=== PATIENT | male | born 1940 | race American Indian/Alaskan Native ===

== ENCOUNTER 2018-08-31 18:06 | Inpatient (IN) | payer MEDICARE ==
[2018-08-31] MEDS ORDERED: VANCOMYCIN/NS 1 GM/250 ML 1 GM/250 ML BAG IV ONE (18:51)
--- NOTE | 2018-08-31 18:55 | Emergency Department Report ---
ED General Adult HPI - General Chief complaint: Extremity Problem,Nontraumatic Stated complaint: EDEMA/ULCERS ON LEGS/SENT BY DOCTOR Time Seen by Provider: 08/31/18 18:40 Source: patient Mode of arrival: Wheelchair Limitations: No Limitations - History of Present Illness Initial comments: Patient is 78 years old male with history of congestive heart failure and chronic bilateral lower extremity lymphedema. Patient was sent from his primary care physician office after consulting with the vascular surgeon Dr. Thomson. Patient had varicose surgery a few months back by Dr. Thomson as an outpatient surgery. Patient presented to his primary care physician office today with significant bilateral lower extremity swelling with multiple area or for skin ulceration with greenish discharge. Patient was sent here for admission and IV antibiotics. Patient denied any fever or chills. No nausea or vomiting. Patient denied any shortness of breath or chest pain. Severity scale (0 -10): 10 - Related Data Home Medications Medication Instructions Recorded Confirmed Last Taken Furosemide [Lasix TAB] 40 mg PO QDAY 07/20/14 08/31/18 08/31/18 Irbesartan [Avapro] 150 mg PO QDAY 07/20/14 08/31/18 08/31/18 Potassium Chloride 10 meq PO QDAY 07/20/14 08/31/18 07/19/14 Pravastatin [Pravachol] 40 mg PO QHS 07/20/14 08/31/18 07/19/14 Timolol [Betimol] 1 drop OU BID 07/20/14 08/31/18 07/20/14 06:30 Warfarin Sodium [Coumadin] 4 mg PO QDAY 07/20/14 08/31/18 07/15/14 Carvedilol [Coreg] 12.5 mg PO BID 08/31/18 08/31/18 08/31/18 Latanoprost [Xalatan] 1 drop OU QPM 08/31/18 08/31/18 Unknown Allergies Allergy/AdvReac Type Severity Reaction Status Date / Time No Known Allergies Allergy Verified 07/20/14 06:59 ED Review of Systems ROS: Stated complaint: EDEMA/ULCERS ON LEGS/SENT BY DOCTOR Other details as noted in HPI Comment: All other systems reviewed and negative Constitutional: denies: chills, fever Respiratory: denies: cough, orthopnea, shortness of breath, SOB with exertion, SOB at rest, wheezing Cardiovascular: denies: chest pain, palpitations ED Past Medical Hx - Past Medical History Hx Hypertension: Yes () Hx Heart Attack/AMI: No Hx Congestive Heart Failure: Yes Hx HIV: No - Surgical History Past Surgical History?: No - Social History Smoking Status: Never Smoker Substance Use Type: None - Medications Home Medications: Home Medications Medication Instructions Recorded Confirmed Last Taken Type Furosemide [Lasix TAB] 40 mg PO QDAY 07/20/14 08/31/18 08/31/18 History Irbesartan [Avapro] 150 mg PO QDAY 07/20/14 08/31/18 08/31/18 History Potassium Chloride 10 meq PO QDAY 07/20/14 08/31/18 07/19/14 History Pravastatin [Pravachol] 40 mg PO QHS 07/20/14 08/31/18 07/19/14 History Timolol [Betimol] 1 drop OU BID 07/20/14 08/31/18 07/20/14 06:30 History Warfarin Sodium [Coumadin] 4 mg PO QDAY 07/20/14 08/31/18 07/15/14 History Carvedilol [Coreg] 12.5 mg PO BID 08/31/18 08/31/18 08/31/18 History Latanoprost [Xalatan] 1 drop OU QPM 08/31/18 08/31/18 Unknown History ED Physical Exam - General Limitations: No Limitations General appearance: alert, in no apparent distress - Head Head exam: Present: atraumatic, normocephalic, normal inspection - Eye Eye exam: Present: normal appearance - ENT ENT exam: Present: normal exam, normal orophraynx, mucous membranes moist - Neck Neck exam: Present: normal inspection, full ROM. Absent: tenderness, meningismus, lymphadenopathy, thyromegaly - Respiratory Respiratory exam: Present: normal lung sounds bilaterally. Absent: respiratory distress, wheezes, rales, rhonchi, chest wall tenderness, accessory muscle use, decreased breath sounds, prolonged expiratory - Cardiovascular Cardiovascular Exam: Present: regular rate, normal rhythm, normal heart sounds - GI/Abdominal GI/Abdominal exam: Present: soft, normal bowel sounds. Absent: distended, tenderness, guarding, rebound, rigid - Extremities Exam Extremities exam: Present: pedal edema, other (significant bilateral lower extremity lymphedema with multiple ulceration with greenish discharge.) - Back Exam Back exam: Present: normal inspection - Neurological Exam Neurological exam: Present: alert, oriented X3, CN II-XII intact - Psychiatric Psychiatric exam: Present: normal mood - Skin Skin exam: Present: erythema ED Course Vital Signs 08/31/18 08/31/18 08/31/18 18:17 20:00 20:15 Temperature 98.8 F 98.4 F Pulse Rate 76 76 Respiratory 18 16 Rate Blood Pressure 140/60 127/70 O2 Sat by Pulse 98 98 Oximetry - Consultations Consultation #1: 08/31/18 20:24 I discussed the patient is Dr. Thomsno, he advised to admit the patient to the hospital and he will follow up with the patient in the morning. 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 Patient was sent from his primary care physician office after consulting with the vascular surgeon Dr. Thomson. Patient had varicose surgery a few months back by Dr. Thomson as an outpatient surgery. Patient presented to his primary care physician office today with significant bilateral lower extremity swelling with multiple area or for skin ulceration with greenish discharge. Patient was sent here for admission and IV antibiotics. Patient denied any fever or chills. No nausea or vomiting. Patient denied any shortness of breath or chest pain. Patient found to have significant bilateral lymphedema with cellulitis. I discussed the patient is Dr. Thomson, he advised to admit the patient to the hospital and he will see the patient in the morning. Patient also found to have, D and toxicity with INR of 14. No active bleeding. Vitamin K is given. I discussed the patient is Dr. Abby Martinez, she agreed to admit to medical service. Critical Care Time: Yes Critical care time in (mins) excluding proc time.: 30 Critical care attestation.: If time is entered above; I have spent that time in minutes in the direct care of this critically ill patient, excluding procedure time. ED Disposition Clinical Impression: Lymphedema of both lower extremities, Bilateral lower leg cellulitis, Coumadin toxicity Disposition: OP ADMIT IP TO THIS HOSP Is pt being admited?: Yes Condition: Stable Referrals: [facility], MD [Referring] - 3-5 Days
[2018-08-31 19:57] LABS: Alanine Aminotransferase 13 units/L (7-56); Albumin 3.3 g/dL (3.9-5); BUN/Creatinine Ratio 28; Blood Urea Nitrogen 22 mg/dL (9-20); Hemolysis Index 89
[2018-08-31 20:02] LABS: Basophils # (Auto) 0.1 K/mm3 (0.0-0.1); Basophils % (Auto) 0.8 % (0.0-1.8); Eosinophils # (Auto) 0.1 K/mm3 (0.0-0.4); Eosinophils % (Auto) 1.3 % (0.0-4.3); Hematocrit 35.5 % (35.5-45.6); Hemoglobin 11.1 gm/dl (11.8-15.2); Lymphocytes # (Auto) 0.7 K/mm3 (1.2-5.4); Lymphocytes % (Auto) 9.8 % (13.4-35.0); Mean Corpuscular HGB Conc 31 % (32-34); Mean Corpuscular Volume 87 fl (84-94); Monocytes # (Auto) 0.8 K/mm3 (0.0-0.8); Monocytes % (Auto) 11.5 % (0.0-7.3); Platelet Count 153 K/mm3 (140-440); Red Blood Count 4.09 M/mm3 (3.65-5.03); Red Cell Distribution Width 19.2 % (13.2-15.2)
[2018-08-31 20:09] LABS: INR 14.11 (0.87-1.13); Partial Thromboplastin Time 226.8 Sec. (24.2-36.6)
[2018-08-31] MEDS: VANCOMYCIN 2,000 MG in NACL 0.9% 500 ML 500 ML IV SCH (20:51)
[2018-08-31] MEDS ORDERED: VITAMIN K (ADULT ONLY) SUB-Q ONE (21:27)
--- NOTE | 2018-08-31 23:22 | History and Physical Report ---
History of Present Illness Date of examination: 08/31/18 History of present illness: 78-year-old male with a history of hypertension, CHF, lymphedema stated that he had a procedure on his leg on July 08 for circulation, after that he developed blisters on his legs. He has been going to wound care, they have been wrapping his legs since. Patient state he had greenish discharge from wound. Vascular wanted the patient to be admitted, they will attempt another procedure on his leg Review of systems Constitutional: no weight loss, chills, fever Ears, eyes, nose, mouth and throat: no nasal congestion, no nasal discharge, no sinus pressure, no vision change, no red eye. Neck: No neck pain or rigidity. Cardiovascular: no palpitations, chest pain Respiratory: no cough, shortness of breath Gastrointestinal: no hematochezia, abdominal pain Genitourinary : no frequency , no hematuria Musculoskeletal: no joint swelling or muscle ache Integumentary: no rash, no pruritis Neurological: no parathesias, no focal weakness Endocrine: no cold or heat intolerance, no polyuria or polydipsia Hematologic/Lymphatic: no easy bruising, no easy bleeding, no gland swelling Allergic/Immunologic: no urticaria, no angioedema. PAST MEDICAL HISTORY:hypertension, CHF, lymphedema PAST SURGICAL HISTORY: SOCIAL HISTORY: Denies alcohol, drugs, tobacco FAMILY HISTORY: Hypertension Medications and Allergies Allergies Allergy/AdvReac Type Severity Reaction Status Date / Time No Known Allergies Allergy Verified 07/20/14 06:59 Home Medications Medication Instructions Recorded Confirmed Last Taken Type Furosemide [Lasix TAB] 40 mg PO QDAY 07/20/14 08/31/18 08/31/18 History Irbesartan [Avapro] 150 mg PO QDAY 07/20/14 08/31/18 08/31/18 History Potassium Chloride 10 meq PO QDAY 07/20/14 08/31/18 07/19/14 History Pravastatin [Pravachol] 40 mg PO QHS 07/20/14 08/31/18 07/19/14 History Timolol [Betimol] 1 drop OU BID 07/20/14 08/31/18 07/20/14 06:30 History Warfarin Sodium [Coumadin] 4 mg PO QDAY 07/20/14 08/31/18 07/15/14 History Carvedilol [Coreg] 12.5 mg PO BID 08/31/18 08/31/18 08/31/18 History Latanoprost [Xalatan] 1 drop OU QPM 08/31/18 08/31/18 Unknown History Enoxaparin [Lovenox] 100 mg SUB-Q Q12HR #14 syringe 09/08/18 Unknown Rx oxyCODONE /ACETAMINOPHEN [Percocet 1 tab PO Q4H PRN #20 tablet 09/08/18 Unknown Rx 5/325 mg] Active Meds: Active Medications Vancomycin HCl 2,000 mg/ (Sodium Chloride) 540 mls @ 250 mls/hr IV Q12H [facility] Last Admin: 08/31/18 20:51 Dose: 250 mls/hr Documented by: Exam - Physical Exam Narrative exam: General Apperance: The patient lying in bed, breathing comfortable HEENT: Normocephalic, atraumatic. Pupils equally round and reactive to light, EOMI, no sclericterus or JVD or thyromegaly or nodule. , no carotid bruit, mucous membranes moist, no exudate or erythema Heart: S1-S2, regular is rhythm Lungs: Clear to auscultation bilaterally, breathing comfortable Abdomen: Positive bowel sounds, soft, nontender, nondistended, no organomegaly Extremities: Lympedema, denuded blisters without erythema, no cyanosis clubbing Skin: no rash, nodule, warm and dry Neuro: cranial nerves 2-12 intact, speech is fluent, motor/sensory intact - Constitutional Vitals: Temp Pulse Resp BP Pulse Ox 98.4 F 65 18 108/56 97 08/31/18 20:15 08/31/18 22:00 08/31/18 22:00 08/31/18 22:00 08/31/18 22:00 Results - Labs CBC & Chem 7: 09/02/18 15:46 09/08/18 16:11 Labs: Abnormal lab results 08/31/18 08/31/18 08/31/18 Range/Units 19:33 19:33 19:42 Hgb 11.1 L (11.8-15.2) gm/dl MCH 27 L (28-32) pg MCHC 31 L (32-34) % RDW 19.2 H (13.2-15.2) % Lymph % (Auto) 9.8 L (13.4-35.0) % [place] % (Auto) 11.5 H (0.0-7.3) % Lymph # 0.7 L (1.2-5.4) K/mm3 Seg Neutrophils % 76.6 H (40.0-70.0) % PT 114.7 H (12.2-14.9) Sec. INR 14.11 H* (0.87-1.13) APTT 226.8 H* (24.2-36.6) Sec. Sodium 146 H (137-145) mmol/L Chloride 112.7 H (98-107) mmol/L BUN 22 H (9-20) mg/dL Glucose 131 H (75-100) mg/dL Albumin 3.3 L (3.9-5) g/dL Assessment and Plan Assessment Cellulitis Llymphedema CHF, stable Hypertension Plan Admit to medicine Continue vancomycin Nothing by mouth call for procedure tomorrow Continue appropriate outpatient medications DVT prophylaxis, repeat PT/INR
[2018-09-01 00:01] LABS: INR 4.87 (0.87-1.13)
[2018-09-01 01:08] LABS: Partial Thromboplastin Time 85.6 Sec. (24.2-36.6)
[2018-09-01] MEDS: PERCOCET 5/325 PO PRN ×2 (01:48→17:55)
[2018-09-01] MEDS ORDERED: SODIUM CHLORIDE FLUSH SYRINGE 10 ML IV PRN (05:01)
[2018-09-01] MEDS ORDERED: ZOFRAN IV PRN (05:01)
[2018-09-01 07:46] LABS: Hematocrit 30.6 % (35.5-45.6); Hemoglobin 9.6 gm/dl (11.8-15.2); Mean Corpuscular HGB Conc 31 % (32-34); Mean Corpuscular Volume 86 fl (84-94); Platelet Count 116 K/mm3 (140-440); Red Blood Count 3.58 M/mm3 (3.65-5.03); Red Cell Distribution Width 18.7 % (13.2-15.2)
[2018-09-01 07:48] LABS: BUN/Creatinine Ratio 25; Blood Urea Nitrogen 20 mg/dL (9-20); Calcium 9.6 mg/dL (8.4-10.2)
[2018-09-01 07:49] LABS: Hemolysis Index 0
--- NOTE | 2018-09-01 08:42 | Progress Note ---
Assessment and Plan Assessment and plan: 78-year-old male with a history of hypertension, CHF, lymphedema, the patient had had recent varicose surgery a few months ago with Dr. Balnton as an outpatient. He presents his outpatient PCP with complaints of significant bilateral actually swelling and multiple areas of skin ulceration. His PCP then sent into the hospital. PAST MEDICAL HISTORY:hypertension, CHF, lymphedema Diagnoses Cellulitis ruled out Llymphedema Venous stasis ulcers CHF, stable Hypertension -paroxysmal atrial fibrillation with hypercoagulable states Plan -Local wound care, with compression for lymphedema, will need outpatient referral to lymphedema clinic -At this point he is awaiting vascular surgery consult -Patient is fully anticoagulated for PAF History Interval history: The patient continues to complain of swelling in both legs, ulcers on both legs. No fever, no chest pain, no shortness of breath, no nausea, no vomiting Hospitalist Physical - Physical exam Narrative exam: General.: Appears well, no distress, nontoxic HEENT: Moist mucous membranes, extraocular muscles intact, no lymphadenopathy Neck: supple Cardiac: S1-S2 heard Lungs: clear to auscultation bilaterally Abdomen: soft , nontender, nondistended, bowel sounds positive Extremities: Lymphedema of bilateral lower extremities and multiple ulcerations Skin: no rash or lesions Neurologic: no gross focal deficits Psych: calm, and cooperative - Constitutional Vitals: Temp Pulse Resp BP Pulse Ox 97.8 F 55 L 20 102/46 96 09/01/18 07:19 09/01/18 07:00 09/01/18 07:19 09/01/18 07:19 09/01/18 07:00 Results - Labs CBC & Chem 7: 09/02/18 15:46 09/06/18 10:57 Labs: Laboratory Last Values WBC 4.9 K/mm3 (4.5-11.0) 09/01/18 06:40 RBC 3.58 M/mm3 (3.65-5.03) L 09/01/18 06:40 Hgb 9.6 gm/dl (11.8-15.2) L 09/01/18 06:40 Hct 30.6 % (35.5-45.6) L 09/01/18 06:40 MCV 86 fl (84-94) 09/01/18 06:40 MCH 27 pg (28-32) L 09/01/18 06:40 MCHC 31 % (32-34) L 09/01/18 06:40 RDW 18.7 % (13.2-15.2) H 09/01/18 06:40 Plt Count 116 K/mm3 (140-440) L 09/01/18 06:40 Lymph % (Auto) 9.8 % (13.4-35.0) L 08/31/18 19:42 [place] % (Auto) School Psychology Professor 09/01/18 06:40 Eos % (Auto) 1.3 % (0.0-4.3) 08/31/18 19:42 Baso % (Auto) 0.8 % (0.0-1.8) 08/31/18 19:42 Lymph # 0.7 K/mm3 (1.2-5.4) L 08/31/18 19:42 [place] # 0.8 K/mm3 (0.0-0.8) 08/31/18 19:42 Eos # 0.1 K/mm3 (0.0-0.4) 08/31/18 19:42 Baso # 0.1 K/mm3 (0.0-0.1) 08/31/18 19:42 Seg Neutrophils % 76.6 % (40.0-70.0) H 08/31/18 19:42 Seg Neutrophils # 5.5 K/mm3 (1.8-7.7) 08/31/18 19:42 PT 49.0 Sec. (12.2-14.9) H 08/31/18 23:27 INR 4.87 (0.87-1.13) H 08/31/18 23:27 APTT 85.6 Sec. (24.2-36.6) H* 08/31/18 23:27 Sodium 149 mmol/L (137-145) H 09/01/18 06:40 Potassium 3.5 mmol/L (3.6-5.0) L D 09/01/18 06:40 Chloride 115.3 mmol/L (98-107) H 09/01/18 06:40 Carbon Dioxide 25 mmol/L (22-30) 09/01/18 06:40 Anion Gap 12 mmol/L 09/01/18 06:40 BUN 20 mg/dL (9-20) 09/01/18 06:40 Creatinine 0.8 mg/dL (0.8-1.5) 09/01/18 06:40 Estimated GFR > 60 ml/min 09/01/18 06:40 BUN/Creatinine Ratio 25 % 09/01/18 06:40 Glucose 78 mg/dL (75-100) 09/01/18 06:40 Calcium 9.6 mg/dL (8.4-10.2) 09/01/18 06:40 Total Bilirubin 0.70 mg/dL (0.1-1.2) 08/31/18 19:33 AST 23 units/L (5-40) 08/31/18 19:33 ALT 13 units/L (7-56) 08/31/18 19:33 Alkaline Phosphatase 116 units/L (35-129) 08/31/18 19:33 Total Protein 6.4 g/dL (6.3-8.2) 08/31/18 19:33 Albumin 3.3 g/dL (3.9-5) L 08/31/18 19:33 Albumin/Globulin Ratio 1.1 % 08/31/18 19:33
[2018-09-01 08:51] LABS: Total Cells Counted 100
[2018-09-01 08:55] LABS: Anisocytosis 1+; Ovalocytes Few; Platelet Estimate Consistent w Auto; Poikilocytosis 1+; Schistocytes Rare
[2018-09-01] MEDS: VANCOMYCIN 2,000 MG in NACL 0.9% 500 ML 500 ML IV SCH (09:38)
[2018-09-01] MEDS ORDERED: NON-FORMULARY (Irbesartan [Avapro] 150 MG) PO SCH (10:00)
[2018-09-01] MEDS: TIMOPTIC OU SCH (10:36)
[2018-09-01] MEDS: SODIUM CHLORIDE FLUSH SYRINGE 10 ML IV SCH ×2 (10:41→22:15)
[2018-09-01] MEDS: COREG PO SCH ×2 (10:59→22:13)
[2018-09-01] MEDS: COZAAR PO SCH (12:45)
[2018-09-01] MEDS: LASIX PO SCH (12:47)
[2018-09-01] MEDS: LATANOPROST 0.005% OU SCH (17:56)
--- NOTE | 2018-09-01 17:56 | Consultation ---
History of Present Illness - Reason for Consult Consult date: 09/01/18 lower extremity edema and wounds Requesting physician: CUATE TORRES - History of Present Illness He is 78 year black male with history of congestive heart failure, hypertension and chronic bilateral lower extremity lymphedema. He was evaluated at his primary care physician's office and was noted to have severe lower extremity edema to bilateral lower extremities with ulcerations. The ulcerations were draining purulent discharge. His primary physician, Dr. Tsai sent him to the ER for further evaluation. He was admitted for cellulitis, warfarin toxicity, and uncontrolled lymphedema. A vascular surgery consult was requested to evaluate. Past History Past Medical History: hypertension, other (CHF, lymphedema) Past Surgical History: Other (GSV ablation) Social history: denies: smoking, alcohol abuse Family history: hypertension Medications and Allergies Allergies Allergy/AdvReac Type Severity Reaction Status Date / Time No Known Allergies Allergy Verified 07/20/14 06:59 Home Medications Medication Instructions Recorded Confirmed Last Taken Type Furosemide [Lasix TAB] 40 mg PO QDAY 07/20/14 08/31/18 08/31/18 History Irbesartan [Avapro] 150 mg PO QDAY 07/20/14 08/31/18 08/31/18 History Potassium Chloride 10 meq PO QDAY 07/20/14 08/31/18 07/19/14 History Pravastatin [Pravachol] 40 mg PO QHS 07/20/14 08/31/18 07/19/14 History Timolol [Betimol] 1 drop OU BID 07/20/14 08/31/18 07/20/14 06:30 History Warfarin Sodium [Coumadin] 4 mg PO QDAY 07/20/14 08/31/18 07/15/14 History Carvedilol [Coreg] 12.5 mg PO BID 08/31/18 08/31/18 08/31/18 History Latanoprost [Xalatan] 1 drop OU QPM 08/31/18 08/31/18 Unknown History Active Meds: Active Medications Acetaminophen (Tylenol) 650 mg PO Q4H PRN PRN Reason: Pain MILD(1-3)/Fever >100.5/ALEXANDER Carvedilol (Coreg) 12.5 mg PO BID [facility] Last Admin: 09/01/18 10:59 Dose: Not Given Documented by: Furosemide (Lasix) 40 mg PO QDAY [facility] Last Admin: 09/01/18 12:47 Dose: Not Given Documented by: Potassium Chloride 10 meq/ (Dextrose) 1,005 mls @ 100 mls/hr IV DIRECT [facility] Vancomycin HCl 2,000 mg/ (Sodium Chloride) 540 mls @ 250 mls/hr IV Q24HR [facility] Latanoprost (Latanoprost 0.005%) 1 drops OU QPM [facility] Losartan Potassium (Cozaar) 50 mg PO QDAY [facility] Last Admin: 09/01/18 12:45 Dose: Not Given Documented by: Ondansetron HCl (Zofran) 4 mg IV Q8H PRN PRN Reason: Nausea And Vomiting Oxycodone/Acetaminophen (Percocet 5/325) 1 tab PO Q4H PRN PRN Reason: Pain, Moderate (4-6) Last Admin: 09/01/18 01:48 Dose: 1 tab Documented by: Pravastatin Sodium (Pravachol) 40 mg PO QHS [facility] Sodium Chloride (Sodium Chloride Flush Syringe 10 Ml) 10 ml IV BID [facility] Last Admin: 09/01/18 10:41 Dose: 10 ml Documented by: Sodium Chloride (Sodium Chloride Flush Syringe 10 Ml) 10 ml IV PRN PRN PRN Reason: LINE FLUSH Timolol Maleate (Timoptic) 1 drops OU QDAY [facility] Last Admin: 09/01/18 10:36 Dose: 1 drops Documented by: Review of Systems All systems: negative (leg swelling, lower extremity ulcerations) Exam - Constitutional Vitals: Temp Pulse Resp BP Pulse Ox 98.0 F 69 20 113/46 97 09/01/18 15:17 09/01/18 12:00 09/01/18 15:17 09/01/18 15:17 09/01/18 15:39 General appearance: Present: well-nourished, other (Awake alert) - EENT Eyes: Present: EOM intact ENT: hearing intact - Neck Neck: Present: supple, normal ROM - Respiratory Respiratory effort: normal, other (nonlabored at rest) - Extremities Extremities: abnormal (3+ edema bilateral lower extremities, Multiple superficial ulcerations present bilateral lower extremities, serous drainage present, ) Peripheral Pulses: abnormal (Bilateral DP/PT pulses nonpalpable, lower extremities warm and appear adequately perfused) - Integumentary Integumentary: Present: warm, dry (Multiple superfical ulcerations bilateral lower extremities, wound beds pink, serous drainage, lipodermatosclerosis early lichenfication present lower extremities) - Psychiatric Psychiatric: intact judgment & insight, cooperative - Neurologic Neurologic: CNII-XII intact, no focal deficits, moves all extremities Results - Labs CBC & Chem 7: 09/01/18 06:40 09/01/18 06:40 Labs: Abnormal lab results 08/31/18 08/31/18 08/31/18 Range/Units 19:33 19:33 19:42 RBC (3.65-5.03) M/mm3 Hgb 11.1 L (11.8-15.2) gm/dl Hct (35.5-45.6) % MCH 27 L (28-32) pg MCHC 31 L (32-34) % RDW 19.2 H (13.2-15.2) % Plt Count (140-440) K/mm3 Lymph % (Auto) 9.8 L (13.4-35.0) % [place] % (Auto) 11.5 H (0.0-7.3) % Lymph # 0.7 L (1.2-5.4) K/mm3 Seg Neutrophils % 76.6 H (40.0-70.0) % Seg Neuts % (Manual) (40.0-70.0) % Lymphocytes % (Manual) (13.4-35.0) % Monocytes % (Manual) (0.0-7.3) % Lymphocytes # (Manual) (1.2-5.4) K/mm3 PT 114.7 H (12.2-14.9) Sec. INR 14.11 H* (0.87-1.13) APTT 226.8 H* (24.2-36.6) Sec. Sodium 146 H (137-145) mmol/L Potassium (3.6-5.0) mmol/L Chloride 112.7 H (98-107) mmol/L BUN 22 H (9-20) mg/dL Glucose 131 H (75-100) mg/dL Albumin 3.3 L (3.9-5) g/dL 08/31/18 09/01/18 09/01/18 Range/Units 23:27 06:40 06:40 RBC 3.58 L (3.65-5.03) M/mm3 Hgb 9.6 L (11.8-15.2) gm/dl Hct 30.6 L (35.5-45.6) % MCH 27 L (28-32) pg MCHC 31 L (32-34) % RDW 18.7 H (13.2-15.2) % Plt Count 116 L (140-440) K/mm3 Lymph % (Auto) (13.4-35.0) % [place] % (Auto) (0.0-7.3) % Lymph # (1.2-5.4) K/mm3 Seg Neutrophils % (40.0-70.0) % Seg Neuts % (Manual) 80.0 H (40.0-70.0) % Lymphocytes % (Manual) 8.0 L (13.4-35.0) % Monocytes % (Manual) 10.0 H (0.0-7.3) % Lymphocytes # (Manual) 0.4 L (1.2-5.4) K/mm3 PT 49.0 H (12.2-14.9) Sec. INR 4.87 H (0.87-1.13) APTT 85.6 H* (24.2-36.6) Sec. Sodium 149 H (137-145) mmol/L Potassium 3.5 L D (3.6-5.0) mmol/L Chloride 115.3 H (98-107) mmol/L BUN (9-20) mg/dL Glucose (75-100) mg/dL Albumin (3.9-5) g/dL Assessment and Plan Lymphedema He is known to our practice for previous evaluation and treatment of venous insufficiency and lymphedema. He had previous venous ablation in the past with little change in his lower extremity symptoms, no further venous procedures completed as lymphedema considered to be his primary source. He reports this exacerbation of leg swelling started in May 2018. He has lymphedema pumps and has not been using them. He also is not elevating his legs. He has not been wearing compression hose due to his leg wounds. On exam his lower extremities are warm and appear adequately perfused but his pulses are non-palpable likely due to edema. Will obtain lower arterial studies. No vascular surgical intervention indicated at this time. Recommend aggressive leg elevation, manual lymphatic drainage then compression hose and continued use of his compression pumps consistently. Consult wound care, discharge planning for outpatient wound care follow up. Cellulitis lower extremities continue with antibiotics Warfarin Toxicity Unsure of diagnosis for anticoagulation therapy. Currently Warfarin toxic. Management as per hospitalist.
[2018-09-01] MEDS: PRAVACHOL PO SCH (22:14)
[2018-09-02] MEDS: KCL 10 MEQ in D5W 1,000 ML IV SCH (06:00)
[2018-09-02] MEDS: TYLENOL PO PRN (09:01)
[2018-09-02] MEDS: TIMOPTIC OU SCH (09:01)
[2018-09-02] MEDS: SODIUM CHLORIDE FLUSH SYRINGE 10 ML IV SCH (09:04)
--- NOTE | 2018-09-02 14:19 | Progress Note ---
Assessment and Plan Assessment and plan: 78-year-old male with a history of hypertension, CHF, lymphedema, the patient had had recent varicose surgery a few months ago with Dr. Blanton as an outpatient. He presents his outpatient PCP with complaints of significant bilateral actually swelling and multiple areas of skin ulceration. His PCP then sent into the hospital. PAST MEDICAL HISTORY:hypertension, CHF, lymphedema Diagnoses Cellulitis ruled out Llymphedema Venous stasis ulcers CHF, stable Hypertension -paroxysmal atrial fibrillation with hypercoagulable states Hypokalemia Plan -Local wound care, with compression for lymphedema, will need outpatient referral to lymphedema clinic -Vascular surgery consult appreciated, he is planned for inpatient's procedure for revascularization of lower extremities -Patient is fully anticoagulated for PAF Potassium was repleted History Interval history: The patient continues to complain of swelling in both legs, ulcers on both legs. No fever, no chest pain, no shortness of breath, no nausea, no vomiting Hospitalist Physical - Physical exam Narrative exam: General.: Appears well, no distress, nontoxic HEENT: Moist mucous membranes, extraocular muscles intact, no lymphadenopathy Neck: supple Cardiac: S1-S2 heard Lungs: clear to auscultation bilaterally Abdomen: soft , nontender, nondistended, bowel sounds positive Extremities: Lymphedema of bilateral lower extremities and multiple ulcerations Skin: no rash or lesions Neurologic: no gross focal deficits Psych: calm, and cooperative - Constitutional Vitals: Temp Pulse Resp BP Pulse Ox 98.3 F 66 19 130/60 96 09/02/18 12:26 09/02/18 12:26 09/02/18 12:26 09/02/18 12:26 09/02/18 12:26 General appearance: Present: well-nourished, other (Awake alert) Results - Labs CBC & Chem 7: 09/02/18 15:46 09/06/18 10:57 Labs: Laboratory Last Values WBC 4.9 K/mm3 (4.5-11.0) 09/01/18 06:40 RBC 3.58 M/mm3 (3.65-5.03) L 09/01/18 06:40 Hgb 9.6 gm/dl (11.8-15.2) L 09/01/18 06:40 Hct 30.6 % (35.5-45.6) L 09/01/18 06:40 MCV 86 fl (84-94) 09/01/18 06:40 MCH 27 pg (28-32) L 09/01/18 06:40 MCHC 31 % (32-34) L 09/01/18 06:40 RDW 18.7 % (13.2-15.2) H 09/01/18 06:40 Plt Count 116 K/mm3 (140-440) L 09/01/18 06:40 Lymph % (Auto) 9.8 % (13.4-35.0) L 08/31/18 19:42 [place] % (Auto) Tank Calibrator 09/01/18 06:40 Eos % (Auto) 1.3 % (0.0-4.3) 08/31/18 19:42 Baso % (Auto) 0.8 % (0.0-1.8) 08/31/18 19:42 Lymph # 0.7 K/mm3 (1.2-5.4) L 08/31/18 19:42 [place] # 0.8 K/mm3 (0.0-0.8) 08/31/18 19:42 Eos # 0.1 K/mm3 (0.0-0.4) 08/31/18 19:42 Baso # 0.1 K/mm3 (0.0-0.1) 08/31/18 19:42 Add Manual Diff Complete 09/01/18 06:40 Total Counted 100 09/01/18 06:40 Seg Neutrophils % 76.6 % (40.0-70.0) H 08/31/18 19:42 Seg Neuts % (Manual) 80.0 % (40.0-70.0) H 09/01/18 06:40 Band Neutrophils % 0 % 09/01/18 06:40 Lymphocytes % (Manual) 8.0 % (13.4-35.0) L 09/01/18 06:40 Reactive Lymphs % (Man) 0 % 09/01/18 06:40 Monocytes % (Manual) 10.0 % (0.0-7.3) H 09/01/18 06:40 Eosinophils % (Manual) 1.0 % (0.0-4.3) 09/01/18 06:40 Basophils % (Manual) 1.0 % (0.0-1.8) 09/01/18 06:40 Metamyelocytes % 0 % 09/01/18 06:40 Myelocytes % 0 % 09/01/18 06:40 Promyelocytes % 0 % 09/01/18 06:40 Blast Cells % 0 % 09/01/18 06:40 Nucleated RBC % Not Reportable 09/01/18 06:40 Seg Neutrophils # 5.5 K/mm3 (1.8-7.7) 08/31/18 19:42 Seg Neutrophils # Man 3.9 K/mm3 (1.8-7.7) 09/01/18 06:40 Band Neutrophils # 0.0 K/mm3 09/01/18 06:40 Lymphocytes # (Manual) 0.4 K/mm3 (1.2-5.4) L 09/01/18 06:40 Abs React Lymphs (Man) 0.0 K/mm3 09/01/18 06:40 Monocytes # (Manual) 0.5 K/mm3 (0.0-0.8) 09/01/18 06:40 Eosinophils # (Manual) 0.0 K/mm3 (0.0-0.4) 09/01/18 06:40 Basophils # (Manual) 0.0 K/mm3 (0.0-0.1) 09/01/18 06:40 Metamyelocytes # 0.0 K/mm3 09/01/18 06:40 Myelocytes # 0.0 K/mm3 09/01/18 06:40 Promyelocytes # 0.0 K/mm3 09/01/18 06:40 Blast Cells # 0.0 K/mm3 09/01/18 06:40 WBC Morphology Not Reportable 09/01/18 06:40 Hypersegmented Neuts Not Reportable 09/01/18 06:40 Hyposegmented Neuts Not Reportable 09/01/18 06:40 Hypogranular Neuts Not Reportable 09/01/18 06:40 Smudge Cells Not Reportable 09/01/18 06:40 Toxic Granulation Not Reportable 09/01/18 06:40 Toxic Vacuolation Not Reportable 09/01/18 06:40 Dohle Bodies Not Reportable 09/01/18 06:40 Pelger-Huet Anomaly Not Reportable 09/01/18 06:40 Keith Rods Not Reportable 09/01/18 06:40 Platelet Estimate Consistent w auto 09/01/18 06:40 Clumped Platelets Not Reportable 09/01/18 06:40 Plt Clumps, EDTA Not Reportable 09/01/18 06:40 Large Platelets Not Reportable 09/01/18 06:40 Giant Platelets Not Reportable 09/01/18 06:40 Platelet Satelliting Not Reportable 09/01/18 06:40 Plt Morphology Comment Not Reportable 09/01/18 06:40 RBC Morphology Not Reportable 09/01/18 06:40 Dimorphic RBCs Not Reportable 09/01/18 06:40 Polychromasia Not Reportable 09/01/18 06:40 Hypochromasia Not Reportable 09/01/18 06:40 Poikilocytosis 1+ 09/01/18 06:40 Anisocytosis 1+ 09/01/18 06:40 Microcytosis Not Reportable 09/01/18 06:40 Macrocytosis Not Reportable 09/01/18 06:40 Spherocytes Not Reportable 09/01/18 06:40 Pappenheimer Bodies Not Reportable 09/01/18 06:40 Sickle Cells Not Reportable 09/01/18 06:40 Target Cells Not Reportable 09/01/18 06:40 Tear Drop Cells Not Reportable 09/01/18 06:40 Ovalocytes Few 09/01/18 06:40 Helmet Cells Not Reportable 09/01/18 06:40 [place] Bodies Not Reportable 09/01/18 06:40 [place] Rings Not Reportable 09/01/18 06:40 [place] Cells Not Reportable 09/01/18 06:40 Bite Cells Not Reportable 09/01/18 06:40 Crenated Cell Not Reportable 09/01/18 06:40 Elliptocytes Not Reportable 09/01/18 06:40 Acanthocytes (Spur) Not Reportable 09/01/18 06:40 Rouleaux Not Reportable 09/01/18 06:40 Hemoglobin C Crystals Not Reportable 09/01/18 06:40 Schistocytes Rare 09/01/18 06:40 Malaria parasites Not Reportable 09/01/18 06:40 Preet Bodies Not Reportable 09/01/18 06:40 Hem Pathologist Commnt No 09/01/18 06:40 PT 49.0 Sec. (12.2-14.9) H 08/31/18 23:27 INR 4.87 (0.87-1.13) H 08/31/18 23:27 APTT 85.6 Sec. (24.2-36.6) H* 08/31/18 23:27 Sodium 149 mmol/L (137-145) H 09/01/18 06:40 Potassium 3.5 mmol/L (3.6-5.0) L D 09/01/18 06:40 Chloride 115.3 mmol/L (98-107) H 09/01/18 06:40 Carbon Dioxide 25 mmol/L (22-30) 09/01/18 06:40 Anion Gap 12 mmol/L 09/01/18 06:40 BUN 20 mg/dL (9-20) 09/01/18 06:40 Creatinine 0.8 mg/dL (0.8-1.5) 09/01/18 06:40 Estimated GFR > 60 ml/min 09/01/18 06:40 BUN/Creatinine Ratio 25 % 09/01/18 06:40 Glucose 78 mg/dL (75-100) 09/01/18 06:40 Calcium 9.6 mg/dL (8.4-10.2) 09/01/18 06:40 Total Bilirubin 0.70 mg/dL (0.1-1.2) 08/31/18 19:33 AST 23 units/L (5-40) 08/31/18 19:33 ALT 13 units/L (7-56) 08/31/18 19:33 Alkaline Phosphatase 116 units/L (35-129) 08/31/18 19:33 Total Protein 6.4 g/dL (6.3-8.2) 08/31/18 19:33 Albumin 3.3 g/dL (3.9-5) L 08/31/18 19:33 Albumin/Globulin Ratio 1.1 % 08/31/18 19:33
[2018-09-02 16:08] LABS: Basophils % (Auto) 0.8 % (0.0-1.8); Eosinophils # (Auto) 0.1 K/mm3 (0.0-0.4); Eosinophils % (Auto) 1.1 % (0.0-4.3); Hemoglobin 9.9 gm/dl (11.8-15.2); Lymphocytes # (Auto) 0.9 K/mm3 (1.2-5.4); Lymphocytes % (Auto) 16.8 % (13.4-35.0); Mean Corpuscular HGB Conc 31 % (32-34); Mean Corpuscular Volume 88 fl (84-94); Monocytes # (Auto) 0.8 K/mm3 (0.0-0.8); Monocytes % (Auto) 15.4 % (0.0-7.3); Red Blood Count 3.63 M/mm3 (3.65-5.03); Red Cell Distribution Width 19.2 % (13.2-15.2)
[2018-09-02 16:10] LABS: Platelet Count 103 K/mm3 (140-440)
[2018-09-02 16:15] LABS: INR 1.64 (0.87-1.13)
[2018-09-02 16:24] LABS: BUN/Creatinine Ratio 20; Blood Urea Nitrogen 18 mg/dL (9-20); Hemolysis Index 11
--- NOTE | 2018-09-02 16:34 | Event Note ---
Date: 09/02/18 Lower extremity arterial studies show bilateral superficial femoral artery stenosis. Patient may require intervention. Recommend continued wound care and leg elevation. We'll consider intervention in 1 or both lower extremities during the coming week.
[2018-09-02] MEDS: LASIX PO SCH (16:54)
[2018-09-02] MEDS: COREG PO SCH ×2 (16:55→22:21)
[2018-09-02] MEDS: COZAAR PO SCH (16:55)
[2018-09-02] MEDS: LATANOPROST 0.005% OU SCH (17:05)
[2018-09-02] MEDS: VANCOMYCIN 2,000 MG in NACL 0.9% 500 ML 500 ML IV SCH (17:45)
[2018-09-02] MEDS: PRAVACHOL PO SCH (22:22)
--- NOTE | 2018-09-02 22:37 | Vascular Lab Report ---
PROCEDURE: VL ARTERIAL DUPLEX LE BILAT HISTORY: wounds legs nonpalpable pulses FINDINGS: Real-time ultrasound of the right leg and left leg was performed using grayscale and color Doppler images. These images demonstrate that this peak systolic velocity in the right proximal common femoral artery was 197 cm/s and biphasic; common femoral artery 126 cm/s and biphasic; proximal SFA 101 cm/s biphas ic; deep femoral artery 125 cm/s and biphasic; mid SFA 42 cm/s and biphasic; distal SFA 105 cm/s and monophasic; popliteal 121 cm/s and monophasic; posterior tibial 52 cm/s and monophasic; anterior tibi al 33 cm/s and monophasic. 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 On the left, peak systolic velocity in the distal common femoral artery was 251 cm/s; distal common f emoral artery 108 cm/s, proximal SFA 84 cm/s and biphasic; deep femoral artery 125 cm/s and biphasic; mid SFA 378 cm/s; distal SFA 138 cm/s; popliteal popliteal 71 cm/s and monophasic; posterior tibial 25 cm/s and monophasic; anterior tibial 24 cm/s and monophasic. There is a less than 50% stenosis in left proximal common femoral artery, a greater than 75% stenosis in the left mid SFA and a greater th an 75% stenosis of the left tibioperoneal trunk. IMPRESSION: The leg arterial vasculature appears patent bilaterally with a greater than 75% stenosis of the right mid SFA, a greater than 75% stenosis in the left mid SF, and a greater than 75% stenosis of the left tibioperoneal trunk. This document is electronically signed by Valeriano Gil MD., September 02 2018 10:35:15 PM ET
[2018-09-03 04:48] LABS: INR 1.56 (0.87-1.13)
[2018-09-03 04:49] LABS: Partial Thromboplastin Time 43.2 Sec. (24.2-36.6)
[2018-09-03] MEDS: TYLENOL PO PRN ×2 (05:59→21:45)
[2018-09-03] MEDS: KCL 10 MEQ in D5W 1,000 ML IV SCH (09:10)
[2018-09-03] MEDS: TIMOPTIC OU SCH ×2 (09:14→21:40)
[2018-09-03] MEDS: SODIUM CHLORIDE FLUSH SYRINGE 10 ML IV SCH ×2 (09:17→22:00)
[2018-09-03] MEDS: VANCOMYCIN 2,000 MG in NACL 0.9% 500 ML 500 ML IV SCH (09:21)
--- NOTE | 2018-09-03 11:40 | Progress Note ---
Assessment and Plan b/l lymphedema, ulcers, PAD plan for angiogram with revascularisation next week continue wound care, leg elavation Subjective Date of service: 09/03/18 Principal diagnosis: lymphedema, PAD Interval history: patient has no complains, denies pain, comfortable in bed Objective - Exam Narrative Exam: b/l LE dressings intact, feet warm - Constitutional Vitals: Vital Signs - 12hr 09/03/18 09/03/18 09/03/18 05:00 05:59 07:11 Temperature 99.2 F 98.9 F Pulse Rate 67 67 Respiratory 18 20 18 Rate Blood Pressure 119/54 Blood Pressure 132/70 [Right] O2 Sat by Pulse 97 94 Oximetry - Labs CBC & Chem 7: 09/02/18 15:46 09/02/18 15:46 Labs: Abnormal lab results 09/02/18 09/02/18 09/02/18 Range/Units 15:46 15:46 15:46 RBC 3.63 L (3.65-5.03) M/mm3 Hgb 9.9 L (11.8-15.2) gm/dl Hct 32.0 L (35.5-45.6) % MCH 27 L (28-32) pg MCHC 31 L (32-34) % RDW 19.2 H (13.2-15.2) % Plt Count 103 L (140-440) K/mm3 [place] % (Auto) 15.4 H (0.0-7.3) % Lymph # 0.9 L (1.2-5.4) K/mm3 PT 20.5 H (12.2-14.9) Sec. INR 1.64 H (0.87-1.13) APTT (24.2-36.6) Sec. Chloride 109.7 H (98-107) mmol/L 09/03/18 Range/Units 04:17 RBC (3.65-5.03) M/mm3 Hgb (11.8-15.2) gm/dl Hct (35.5-45.6) % MCH (28-32) pg MCHC (32-34) % RDW (13.2-15.2) % Plt Count (140-440) K/mm3 [place] % (Auto) (0.0-7.3) % Lymph # (1.2-5.4) K/mm3 PT 19.7 H (12.2-14.9) Sec. INR 1.56 H (0.87-1.13) APTT 43.2 H (24.2-36.6) Sec. Chloride (98-107) mmol/L Medications & Allergies - Medications Allergies/Adverse Reactions: Allergies No Known Allergies Allergy (Verified 07/20/14 06:59) Home Medications: Home Medications Medication Instructions Recorded Confirmed Last Taken Type Furosemide [Lasix TAB] 40 mg PO QDAY 07/20/14 08/31/18 08/31/18 History Irbesartan [Avapro] 150 mg PO QDAY 07/20/14 08/31/18 08/31/18 History Potassium Chloride 10 meq PO QDAY 07/20/14 08/31/18 07/19/14 History Pravastatin [Pravachol] 40 mg PO QHS 07/20/14 08/31/18 07/19/14 History Timolol [Betimol] 1 drop OU BID 07/20/14 08/31/18 07/20/14 06:30 History Warfarin Sodium [Coumadin] 4 mg PO QDAY 07/20/14 08/31/18 07/15/14 History Carvedilol [Coreg] 12.5 mg PO BID 08/31/18 08/31/18 08/31/18 History Latanoprost [Xalatan] 1 drop OU QPM 08/31/18 08/31/18 Unknown History Active Medications: Generic Name Dose Route Start Last Admin Trade Name Freq PRN Reason Stop Dose Admin Acetaminophen 650 mg 09/01/18 05:01 09/03/18 05:59 Tylenol PO 650 mg Q4H PRN Administration Pain MILD(1-3)/Fever >100.5/ALEXANDER Carvedilol 12.5 mg 09/01/18 10:00 09/02/18 22:21 Coreg PO Not Given BID RAFIA Furosemide 40 mg 09/01/18 10:00 09/02/18 16:54 Lasix PO 40 mg QDAY RAFIA Administration Potassium Chloride 10 meq/ 1,005 mls @ 100 mls/hr 09/01/18 09:00 09/03/18 09:10 Dextrose IV 100 mls/hr DIRECT RAFIA Administration Vancomycin HCl 2,000 mg/ 540 mls @ 250 mls/hr 09/02/18 10:00 09/03/18 09:21 Sodium Chloride IV 250 mls/hr Q24HR RAFIA Administration Latanoprost 1 drops 09/01/18 18:00 09/02/18 17:05 Latanoprost 0.005% OU 1 drops QPM RAFIA Administration Losartan Potassium 50 mg 09/01/18 10:00 09/02/18 16:55 Cozaar PO 50 mg QDAY RAFIA Administration Ondansetron HCl 4 mg 09/01/18 05:01 Zofran IV Q8H PRN Nausea And Vomiting Oxycodone/Acetaminophen 1 tab 09/01/18 01:35 09/01/18 17:55 Percocet 5/325 PO 1 tab Q4H PRN Administration Pain, Moderate (4-6) Pravastatin Sodium 40 mg 09/01/18 22:00 09/02/18 22:22 Pravachol PO 40 mg QHS RAFIA Administration Sodium Chloride 10 ml 09/01/18 10:00 09/03/18 09:17 Sodium Chloride Flush Syringe 10 Ml IV 10 ml BID RAFIA Administration Sodium Chloride 10 ml 09/01/18 05:01 Sodium Chloride Flush Syringe 10 Ml IV PRN PRN LINE FLUSH Timolol Maleate 1 drops 09/01/18 10:00 09/03/18 09:14 Timoptic OU 1 drops QDAY RAFIA Administration
[2018-09-03] MEDS: COZAAR PO SCH (13:52)
[2018-09-03] MEDS: COREG PO SCH ×2 (13:53→21:45)
[2018-09-03] MEDS: LASIX PO SCH (13:53)
--- NOTE | 2018-09-03 15:27 | Progress Note ---
Assessment and Plan Assessment and plan: 78-year-old male with a history of hypertension, CHF, lymphedema, the patient had had recent varicose surgery a few months ago with Dr. Blanton as an outpatient. He presents his outpatient PCP with complaints of significant bilateral actually swelling and multiple areas of skin ulceration. His PCP then sent into the hospital. PAST MEDICAL HISTORY:hypertension, CHF, lymphedema Diagnoses Cellulitis ruled out Llymphedema Venous stasis ulcers CHF, stable Hypertension -paroxysmal atrial fibrillation with hypercoagulable states Hypokalemia Plan -Local wound care, with compression for lymphedema, will need outpatient referral to lymphedema clinic -Vascular surgery consult appreciated, he is planned for inpatient's procedure for revascularization of lower extremities -Patient is fully anticoagulated for PAF Potassium was repleted History Interval history: The patient continues to complain of swelling in both legs, ulcers on both legs. No fever, no chest pain, no shortness of breath, no nausea, no vomiting Hospitalist Physical - Physical exam Narrative exam: General.: Appears well, no distress, nontoxic HEENT: Moist mucous membranes, extraocular muscles intact, no lymphadenopathy Neck: supple Cardiac: S1-S2 heard Lungs: clear to auscultation bilaterally Abdomen: soft , nontender, nondistended, bowel sounds positive Extremities: Lymphedema of bilateral lower extremities and multiple ulcerations Skin: no rash or lesions Neurologic: no gross focal deficits Psych: calm, and cooperative - Constitutional Vitals: Temp Pulse Resp BP Pulse Ox 98.5 F 57 L 18 102/41 96 09/03/18 12:00 09/03/18 12:00 09/03/18 12:00 09/03/18 12:00 09/03/18 12:00 General appearance: Present: well-nourished, other (Awake alert) Results - Labs CBC & Chem 7: 09/02/18 15:46 09/06/18 10:57 Labs: Laboratory Last Values WBC 5.1 K/mm3 (4.5-11.0) 09/02/18 15:46 RBC 3.63 M/mm3 (3.65-5.03) L 09/02/18 15:46 Hgb 9.9 gm/dl (11.8-15.2) L 09/02/18 15:46 Hct 32.0 % (35.5-45.6) L 09/02/18 15:46 MCV 88 fl (84-94) 09/02/18 15:46 MCH 27 pg (28-32) L 09/02/18 15:46 MCHC 31 % (32-34) L 09/02/18 15:46 RDW 19.2 % (13.2-15.2) H 09/02/18 15:46 Plt Count 103 K/mm3 (140-440) L 09/02/18 15:46 Lymph % (Auto) 16.8 % (13.4-35.0) 09/02/18 15:46 [place] % (Auto) 15.4 % (0.0-7.3) H 09/02/18 15:46 Eos % (Auto) 1.1 % (0.0-4.3) 09/02/18 15:46 Baso % (Auto) 0.8 % (0.0-1.8) 09/02/18 15:46 Lymph # 0.9 K/mm3 (1.2-5.4) L 09/02/18 15:46 [place] # 0.8 K/mm3 (0.0-0.8) 09/02/18 15:46 Eos # 0.1 K/mm3 (0.0-0.4) 09/02/18 15:46 Baso # 0.0 K/mm3 (0.0-0.1) 09/02/18 15:46 Add Manual Diff Complete 09/01/18 06:40 Total Counted 100 09/01/18 06:40 Seg Neutrophils % 65.9 % (40.0-70.0) 09/02/18 15:46 Seg Neuts % (Manual) 80.0 % (40.0-70.0) H 09/01/18 06:40 Band Neutrophils % 0 % 09/01/18 06:40 Lymphocytes % (Manual) 8.0 % (13.4-35.0) L 09/01/18 06:40 Reactive Lymphs % (Man) 0 % 09/01/18 06:40 Monocytes % (Manual) 10.0 % (0.0-7.3) H 09/01/18 06:40 Eosinophils % (Manual) 1.0 % (0.0-4.3) 09/01/18 06:40 Basophils % (Manual) 1.0 % (0.0-1.8) 09/01/18 06:40 Metamyelocytes % 0 % 09/01/18 06:40 Myelocytes % 0 % 09/01/18 06:40 Promyelocytes % 0 % 09/01/18 06:40 Blast Cells % 0 % 09/01/18 06:40 Nucleated RBC % Not Reportable 09/01/18 06:40 Seg Neutrophils # 3.4 K/mm3 (1.8-7.7) 09/02/18 15:46 Seg Neutrophils # Man 3.9 K/mm3 (1.8-7.7) 09/01/18 06:40 Band Neutrophils # 0.0 K/mm3 09/01/18 06:40 Lymphocytes # (Manual) 0.4 K/mm3 (1.2-5.4) L 09/01/18 06:40 Abs React Lymphs (Man) 0.0 K/mm3 09/01/18 06:40 Monocytes # (Manual) 0.5 K/mm3 (0.0-0.8) 09/01/18 06:40 Eosinophils # (Manual) 0.0 K/mm3 (0.0-0.4) 09/01/18 06:40 Basophils # (Manual) 0.0 K/mm3 (0.0-0.1) 09/01/18 06:40 Metamyelocytes # 0.0 K/mm3 09/01/18 06:40 Myelocytes # 0.0 K/mm3 09/01/18 06:40 Promyelocytes # 0.0 K/mm3 09/01/18 06:40 Blast Cells # 0.0 K/mm3 09/01/18 06:40 WBC Morphology Not Reportable 09/01/18 06:40 Hypersegmented Neuts Not Reportable 09/01/18 06:40 Hyposegmented Neuts Not Reportable 09/01/18 06:40 Hypogranular Neuts Not Reportable 09/01/18 06:40 Smudge Cells Not Reportable 09/01/18 06:40 Toxic Granulation Not Reportable 09/01/18 06:40 Toxic Vacuolation Not Reportable 09/01/18 06:40 Dohle Bodies Not Reportable 09/01/18 06:40 Pelger-Huet Anomaly Not Reportable 09/01/18 06:40 Keith Rods Not Reportable 09/01/18 06:40 Platelet Estimate Consistent w auto 09/01/18 06:40 Clumped Platelets Not Reportable 09/01/18 06:40 Plt Clumps, EDTA Not Reportable 09/01/18 06:40 Large Platelets Not Reportable 09/01/18 06:40 Giant Platelets Not Reportable 09/01/18 06:40 Platelet Satelliting Not Reportable 09/01/18 06:40 Plt Morphology Comment Not Reportable 09/01/18 06:40 RBC Morphology Not Reportable 09/01/18 06:40 Dimorphic RBCs Not Reportable 09/01/18 06:40 Polychromasia Not Reportable 09/01/18 06:40 Hypochromasia Not Reportable 09/01/18 06:40 Poikilocytosis 1+ 09/01/18 06:40 Anisocytosis 1+ 09/01/18 06:40 Microcytosis Not Reportable 09/01/18 06:40 Macrocytosis Not Reportable 09/01/18 06:40 Spherocytes Not Reportable 09/01/18 06:40 Pappenheimer Bodies Not Reportable 09/01/18 06:40 Sickle Cells Not Reportable 09/01/18 06:40 Target Cells Not Reportable 09/01/18 06:40 Tear Drop Cells Not Reportable 09/01/18 06:40 Ovalocytes Few 09/01/18 06:40 Helmet Cells Not Reportable 09/01/18 06:40 [place] Bodies Not Reportable 09/01/18 06:40 [place] Rings Not Reportable 09/01/18 06:40 [place] Cells Not Reportable 09/01/18 06:40 Bite Cells Not Reportable 09/01/18 06:40 Crenated Cell Not Reportable 09/01/18 06:40 Elliptocytes Not Reportable 09/01/18 06:40 Acanthocytes (Spur) Not Reportable 09/01/18 06:40 Rouleaux Not Reportable 09/01/18 06:40 Hemoglobin C Crystals Not Reportable 09/01/18 06:40 Schistocytes Rare 09/01/18 06:40 Malaria parasites Not Reportable 09/01/18 06:40 Preet Bodies Not Reportable 09/01/18 06:40 Hem Pathologist Commnt No 09/01/18 06:40 PT 19.7 Sec. (12.2-14.9) H 09/03/18 04:17 INR 1.56 (0.87-1.13) H 09/03/18 04:17 APTT 43.2 Sec. (24.2-36.6) H 09/03/18 04:17 Sodium 142 mmol/L (137-145) 09/02/18 15:46 Potassium 3.6 mmol/L (3.6-5.0) 09/02/18 15:46 Chloride 109.7 mmol/L (98-107) H 09/02/18 15:46 Carbon Dioxide 23 mmol/L (22-30) 09/02/18 15:46 Anion Gap 13 mmol/L 09/02/18 15:46 BUN 18 mg/dL (9-20) 09/02/18 15:46 Creatinine 0.9 mg/dL (0.8-1.5) 09/02/18 15:46 Estimated GFR > 60 ml/min 09/02/18 15:46 BUN/Creatinine Ratio 20 % 09/02/18 15:46 Glucose 87 mg/dL (75-100) 09/02/18 15:46 Calcium 9.0 mg/dL (8.4-10.2) 09/02/18 15:46 Total Bilirubin 0.70 mg/dL (0.1-1.2) 08/31/18 19:33 AST 23 units/L (5-40) 08/31/18 19:33 ALT 13 units/L (7-56) 08/31/18 19:33 Alkaline Phosphatase 116 units/L (35-129) 08/31/18 19:33 Total Protein 6.4 g/dL (6.3-8.2) 08/31/18 19:33 Albumin 3.3 g/dL (3.9-5) L 08/31/18 19:33 Albumin/Globulin Ratio 1.1 % 08/31/18 19:33
[2018-09-03 15:30] LABS: BUN/Creatinine Ratio 20; Blood Urea Nitrogen 18 mg/dL (9-20); Calcium 8.9 mg/dL (8.4-10.2); Hemolysis Index 3
[2018-09-03] MEDS ORDERED: WARFARIN SODIUM 4 MG PO SCH (15:30)
[2018-09-03] MEDS: LATANOPROST 0.005% OU SCH ×2 (17:39→21:51)
[2018-09-03] MEDS: COUMADIN PO SCH (17:39)
[2018-09-03] MEDS: PRAVACHOL PO SCH (21:33)
[2018-09-04 04:52] LABS: INR 1.55 (0.87-1.13)
[2018-09-04] MEDS: SODIUM CHLORIDE FLUSH SYRINGE 10 ML IV SCH ×3 (07:46→22:02)
[2018-09-04] MEDS: LASIX PO SCH (10:03)
[2018-09-04] MEDS: COZAAR PO SCH (10:04)
[2018-09-04] MEDS: COREG PO SCH ×2 (10:04→22:02)
[2018-09-04] MEDS: TIMOPTIC OU SCH ×2 (10:05→22:15)
[2018-09-04] MEDS: VANCOMYCIN 2,000 MG in NACL 0.9% 500 ML 500 ML IV SCH (12:03)
[2018-09-04 13:31] LABS: BUN/Creatinine Ratio 20; Blood Urea Nitrogen 16 mg/dL (9-20); Calcium 8.8 mg/dL (8.4-10.2); Hemolysis Index 6
--- NOTE | 2018-09-04 15:33 | Progress Note ---
Assessment and Plan Assessment and plan: 78-year-old male with a history of hypertension, CHF, lymphedema, the patient had had recent varicose surgery a few months ago with Dr. Blanton as an outpatient. He presents his outpatient PCP with complaints of significant bilateral actually swelling and multiple areas of skin ulceration. His PCP then sent into the hospital. PAST MEDICAL HISTORY:hypertension, CHF, lymphedema Diagnoses Cellulitis ruled out Llymphedema Venous stasis ulcers CHF, stable Hypertension -paroxysmal atrial fibrillation with hypercoagulable states Hypokalemia Plan -Local wound care, with compression for lymphedema, will need outpatient referral to lymphedema clinic -Vascular surgery consult appreciated, he is planned for inpatient's procedure for revascularization of lower extremities -Patient is fully anticoagulated for PAF Potassium was repleted History Interval history: The patient continues to complain of swelling in both legs, ulcers on both legs. No fever, no chest pain, no shortness of breath, no nausea, no vomiting Hospitalist Physical - Physical exam Narrative exam: General.: Appears well, no distress, nontoxic HEENT: Moist mucous membranes, extraocular muscles intact, no lymphadenopathy Neck: supple Cardiac: S1-S2 heard Lungs: clear to auscultation bilaterally Abdomen: soft , nontender, nondistended, bowel sounds positive Extremities: Lymphedema of bilateral lower extremities and multiple ulcerations Skin: no rash or lesions Neurologic: no gross focal deficits Psych: calm, and cooperative - Constitutional Vitals: Temp Pulse Resp BP Pulse Ox 97.7 F 62 18 107/52 95 09/04/18 12:00 09/04/18 12:00 09/04/18 12:00 09/04/18 12:00 09/04/18 12:00 General appearance: Present: well-nourished, other (Awake alert) Results - Labs CBC & Chem 7: 09/02/18 15:46 09/06/18 10:57 Labs: Laboratory Last Values WBC 5.1 K/mm3 (4.5-11.0) 09/02/18 15:46 RBC 3.63 M/mm3 (3.65-5.03) L 09/02/18 15:46 Hgb 9.9 gm/dl (11.8-15.2) L 09/02/18 15:46 Hct 32.0 % (35.5-45.6) L 09/02/18 15:46 MCV 88 fl (84-94) 09/02/18 15:46 MCH 27 pg (28-32) L 09/02/18 15:46 MCHC 31 % (32-34) L 09/02/18 15:46 RDW 19.2 % (13.2-15.2) H 09/02/18 15:46 Plt Count 103 K/mm3 (140-440) L 09/02/18 15:46 Lymph % (Auto) 16.8 % (13.4-35.0) 09/02/18 15:46 [place] % (Auto) 15.4 % (0.0-7.3) H 09/02/18 15:46 Eos % (Auto) 1.1 % (0.0-4.3) 09/02/18 15:46 Baso % (Auto) 0.8 % (0.0-1.8) 09/02/18 15:46 Lymph # 0.9 K/mm3 (1.2-5.4) L 09/02/18 15:46 [place] # 0.8 K/mm3 (0.0-0.8) 09/02/18 15:46 Eos # 0.1 K/mm3 (0.0-0.4) 09/02/18 15:46 Baso # 0.0 K/mm3 (0.0-0.1) 09/02/18 15:46 Add Manual Diff Complete 09/01/18 06:40 Total Counted 100 09/01/18 06:40 Seg Neutrophils % 65.9 % (40.0-70.0) 09/02/18 15:46 Seg Neuts % (Manual) 80.0 % (40.0-70.0) H 09/01/18 06:40 Band Neutrophils % 0 % 09/01/18 06:40 Lymphocytes % (Manual) 8.0 % (13.4-35.0) L 09/01/18 06:40 Reactive Lymphs % (Man) 0 % 09/01/18 06:40 Monocytes % (Manual) 10.0 % (0.0-7.3) H 09/01/18 06:40 Eosinophils % (Manual) 1.0 % (0.0-4.3) 09/01/18 06:40 Basophils % (Manual) 1.0 % (0.0-1.8) 09/01/18 06:40 Metamyelocytes % 0 % 09/01/18 06:40 Myelocytes % 0 % 09/01/18 06:40 Promyelocytes % 0 % 09/01/18 06:40 Blast Cells % 0 % 09/01/18 06:40 Nucleated RBC % Not Reportable 09/01/18 06:40 Seg Neutrophils # 3.4 K/mm3 (1.8-7.7) 09/02/18 15:46 Seg Neutrophils # Man 3.9 K/mm3 (1.8-7.7) 09/01/18 06:40 Band Neutrophils # 0.0 K/mm3 09/01/18 06:40 Lymphocytes # (Manual) 0.4 K/mm3 (1.2-5.4) L 09/01/18 06:40 Abs React Lymphs (Man) 0.0 K/mm3 09/01/18 06:40 Monocytes # (Manual) 0.5 K/mm3 (0.0-0.8) 09/01/18 06:40 Eosinophils # (Manual) 0.0 K/mm3 (0.0-0.4) 09/01/18 06:40 Basophils # (Manual) 0.0 K/mm3 (0.0-0.1) 09/01/18 06:40 Metamyelocytes # 0.0 K/mm3 09/01/18 06:40 Myelocytes # 0.0 K/mm3 09/01/18 06:40 Promyelocytes # 0.0 K/mm3 09/01/18 06:40 Blast Cells # 0.0 K/mm3 09/01/18 06:40 WBC Morphology Not Reportable 09/01/18 06:40 Hypersegmented Neuts Not Reportable 09/01/18 06:40 Hyposegmented Neuts Not Reportable 09/01/18 06:40 Hypogranular Neuts Not Reportable 09/01/18 06:40 Smudge Cells Not Reportable 09/01/18 06:40 Toxic Granulation Not Reportable 09/01/18 06:40 Toxic Vacuolation Not Reportable 09/01/18 06:40 Dohle Bodies Not Reportable 09/01/18 06:40 Pelger-Huet Anomaly Not Reportable 09/01/18 06:40 Keith Rods Not Reportable 09/01/18 06:40 Platelet Estimate Consistent w auto 09/01/18 06:40 Clumped Platelets Not Reportable 09/01/18 06:40 Plt Clumps, EDTA Not Reportable 09/01/18 06:40 Large Platelets Not Reportable 09/01/18 06:40 Giant Platelets Not Reportable 09/01/18 06:40 Platelet Satelliting Not Reportable 09/01/18 06:40 Plt Morphology Comment Not Reportable 09/01/18 06:40 RBC Morphology Not Reportable 09/01/18 06:40 Dimorphic RBCs Not Reportable 09/01/18 06:40 Polychromasia Not Reportable 09/01/18 06:40 Hypochromasia Not Reportable 09/01/18 06:40 Poikilocytosis 1+ 09/01/18 06:40 Anisocytosis 1+ 09/01/18 06:40 Microcytosis Not Reportable 09/01/18 06:40 Macrocytosis Not Reportable 09/01/18 06:40 Spherocytes Not Reportable 09/01/18 06:40 Pappenheimer Bodies Not Reportable 09/01/18 06:40 Sickle Cells Not Reportable 09/01/18 06:40 Target Cells Not Reportable 09/01/18 06:40 Tear Drop Cells Not Reportable 09/01/18 06:40 Ovalocytes Few 09/01/18 06:40 Helmet Cells Not Reportable 09/01/18 06:40 Broussard-Laurie Bodies Not Reportable 09/01/18 06:40 [place] Rings Not Reportable 09/01/18 06:40 [place] Cells Not Reportable 09/01/18 06:40 Bite Cells Not Reportable 09/01/18 06:40 Crenated Cell Not Reportable 09/01/18 06:40 Elliptocytes Not Reportable 09/01/18 06:40 Acanthocytes (Spur) Not Reportable 09/01/18 06:40 Rouleaux Not Reportable 09/01/18 06:40 Hemoglobin C Crystals Not Reportable 09/01/18 06:40 Schistocytes Rare 09/01/18 06:40 Malaria parasites Not Reportable 09/01/18 06:40 Preet Bodies Not Reportable 09/01/18 06:40 Hem Pathologist Commnt No 09/01/18 06:40 PT 19.6 Sec. (12.2-14.9) H 09/04/18 04:14 INR 1.55 (0.87-1.13) H 09/04/18 04:14 APTT 36.0 Sec. (24.2-36.6) 09/04/18 04:14 Sodium 144 mmol/L (137-145) 09/04/18 12:41 Potassium 3.3 mmol/L (3.6-5.0) L 09/04/18 12:41 Chloride 110.1 mmol/L (98-107) H 09/04/18 12:41 Carbon Dioxide 26 mmol/L (22-30) 09/04/18 12:41 Anion Gap 11 mmol/L 09/04/18 12:41 BUN 16 mg/dL (9-20) 09/04/18 12:41 Creatinine 0.8 mg/dL (0.8-1.5) 09/04/18 12:41 Estimated GFR > 60 ml/min 09/04/18 12:41 BUN/Creatinine Ratio 20 % 09/04/18 12:41 Glucose 111 mg/dL (75-100) H 09/04/18 12:41 Calcium 8.8 mg/dL (8.4-10.2) 09/04/18 12:41 Total Bilirubin 0.70 mg/dL (0.1-1.2) 08/31/18 19:33 AST 23 units/L (5-40) 08/31/18 19:33 ALT 13 units/L (7-56) 08/31/18 19:33 Alkaline Phosphatase 116 units/L (35-129) 08/31/18 19:33 Total Protein 6.4 g/dL (6.3-8.2) 08/31/18 19:33 Albumin 3.3 g/dL (3.9-5) L 08/31/18 19:33 Albumin/Globulin Ratio 1.1 % 08/31/18 19:33
[2018-09-04] MEDS: COUMADIN PO SCH (17:11)
[2018-09-04] MEDS: K-DUR PO SCH (17:11)
[2018-09-04] MEDS: PRAVACHOL PO SCH (22:02)
[2018-09-04] MEDS: LATANOPROST 0.005% OU SCH (22:15)
[2018-09-05 05:00] LABS: INR 1.5 (0.87-1.13)
[2018-09-05 05:02] LABS: Partial Thromboplastin Time 43.1 Sec. (24.2-36.6)
[2018-09-05] MEDS: SODIUM CHLORIDE FLUSH SYRINGE 10 ML IV SCH (10:00)
[2018-09-05 10:44] LABS: BUN/Creatinine Ratio 20; Blood Urea Nitrogen 14 mg/dL (9-20); Calcium 8.7 mg/dL (8.4-10.2); Hemolysis Index 7
--- NOTE | 2018-09-05 11:28 | Progress Note ---
Assessment and Plan Assessment and plan: 78-year-old male with a history of hypertension, CHF, lymphedema, the patient had had recent varicose surgery a few months ago with Dr. Blanton as an outpatient. He presents his outpatient PCP with complaints of significant bilateral actually swelling and multiple areas of skin ulceration. His PCP then sent into the hospital. PAST MEDICAL HISTORY:hypertension, CHF, lymphedema Diagnoses Cellulitis ruled out Llymphedema Venous stasis ulcers CHF, stable Hypertension -paroxysmal atrial fibrillation with hypercoagulable states Hypokalemia Plan -Local wound care, with compression for lymphedema, will need outpatient referral to lymphedema clinic -Vascular surgery consult appreciated, he is planned for inpatient's procedure for revascularization of lower extremities -Patient is fully anticoagulated for PAF Potassium was repleted History Interval history: The patient continues to complain of swelling in both legs, ulcers on both legs. No fever, no chest pain, no shortness of breath, no nausea, no vomiting Hospitalist Physical - Physical exam Narrative exam: General.: Appears well, no distress, nontoxic HEENT: Moist mucous membranes, extraocular muscles intact, no lymphadenopathy Neck: supple Cardiac: S1-S2 heard Lungs: clear to auscultation bilaterally Abdomen: soft , nontender, nondistended, bowel sounds positive Extremities: Lymphedema of bilateral lower extremities and multiple ulcerations Skin: no rash or lesions Neurologic: no gross focal deficits Psych: calm, and cooperative - Constitutional Vitals: Temp Pulse Resp BP Pulse Ox 98.2 F 64 18 114/52 100 09/05/18 08:19 09/05/18 08:19 09/05/18 08:19 09/05/18 08:19 09/05/18 08:19 General appearance: Present: well-nourished, other (Awake alert) Results - Labs CBC & Chem 7: 09/02/18 15:46 09/06/18 10:57 Labs: Laboratory Last Values WBC 5.1 K/mm3 (4.5-11.0) 09/02/18 15:46 RBC 3.63 M/mm3 (3.65-5.03) L 09/02/18 15:46 Hgb 9.9 gm/dl (11.8-15.2) L 09/02/18 15:46 Hct 32.0 % (35.5-45.6) L 09/02/18 15:46 MCV 88 fl (84-94) 09/02/18 15:46 MCH 27 pg (28-32) L 09/02/18 15:46 MCHC 31 % (32-34) L 09/02/18 15:46 RDW 19.2 % (13.2-15.2) H 09/02/18 15:46 Plt Count 103 K/mm3 (140-440) L 09/02/18 15:46 Lymph % (Auto) 16.8 % (13.4-35.0) 09/02/18 15:46 [place] % (Auto) 15.4 % (0.0-7.3) H 09/02/18 15:46 Eos % (Auto) 1.1 % (0.0-4.3) 09/02/18 15:46 Baso % (Auto) 0.8 % (0.0-1.8) 09/02/18 15:46 Lymph # 0.9 K/mm3 (1.2-5.4) L 09/02/18 15:46 [place] # 0.8 K/mm3 (0.0-0.8) 09/02/18 15:46 Eos # 0.1 K/mm3 (0.0-0.4) 09/02/18 15:46 Baso # 0.0 K/mm3 (0.0-0.1) 09/02/18 15:46 Add Manual Diff Complete 09/01/18 06:40 Total Counted 100 09/01/18 06:40 Seg Neutrophils % 65.9 % (40.0-70.0) 09/02/18 15:46 Seg Neuts % (Manual) 80.0 % (40.0-70.0) H 09/01/18 06:40 Band Neutrophils % 0 % 09/01/18 06:40 Lymphocytes % (Manual) 8.0 % (13.4-35.0) L 09/01/18 06:40 Reactive Lymphs % (Man) 0 % 09/01/18 06:40 Monocytes % (Manual) 10.0 % (0.0-7.3) H 09/01/18 06:40 Eosinophils % (Manual) 1.0 % (0.0-4.3) 09/01/18 06:40 Basophils % (Manual) 1.0 % (0.0-1.8) 09/01/18 06:40 Metamyelocytes % 0 % 09/01/18 06:40 Myelocytes % 0 % 09/01/18 06:40 Promyelocytes % 0 % 09/01/18 06:40 Blast Cells % 0 % 09/01/18 06:40 Nucleated RBC % Not Reportable 09/01/18 06:40 Seg Neutrophils # 3.4 K/mm3 (1.8-7.7) 09/02/18 15:46 Seg Neutrophils # Man 3.9 K/mm3 (1.8-7.7) 09/01/18 06:40 Band Neutrophils # 0.0 K/mm3 09/01/18 06:40 Lymphocytes # (Manual) 0.4 K/mm3 (1.2-5.4) L 09/01/18 06:40 Abs React Lymphs (Man) 0.0 K/mm3 09/01/18 06:40 Monocytes # (Manual) 0.5 K/mm3 (0.0-0.8) 09/01/18 06:40 Eosinophils # (Manual) 0.0 K/mm3 (0.0-0.4) 09/01/18 06:40 Basophils # (Manual) 0.0 K/mm3 (0.0-0.1) 09/01/18 06:40 Metamyelocytes # 0.0 K/mm3 09/01/18 06:40 Myelocytes # 0.0 K/mm3 09/01/18 06:40 Promyelocytes # 0.0 K/mm3 09/01/18 06:40 Blast Cells # 0.0 K/mm3 09/01/18 06:40 WBC Morphology Not Reportable 09/01/18 06:40 Hypersegmented Neuts Not Reportable 09/01/18 06:40 Hyposegmented Neuts Not Reportable 09/01/18 06:40 Hypogranular Neuts Not Reportable 09/01/18 06:40 Smudge Cells Not Reportable 09/01/18 06:40 Toxic Granulation Not Reportable 09/01/18 06:40 Toxic Vacuolation Not Reportable 09/01/18 06:40 Dohle Bodies Not Reportable 09/01/18 06:40 Pelger-Huet Anomaly Not Reportable 09/01/18 06:40 Keith Rods Not Reportable 09/01/18 06:40 Platelet Estimate Consistent w auto 09/01/18 06:40 Clumped Platelets Not Reportable 09/01/18 06:40 Plt Clumps, EDTA Not Reportable 09/01/18 06:40 Large Platelets Not Reportable 09/01/18 06:40 Giant Platelets Not Reportable 09/01/18 06:40 Platelet Satelliting Not Reportable 09/01/18 06:40 Plt Morphology Comment Not Reportable 09/01/18 06:40 RBC Morphology Not Reportable 09/01/18 06:40 Dimorphic RBCs Not Reportable 09/01/18 06:40 Polychromasia Not Reportable 09/01/18 06:40 Hypochromasia Not Reportable 09/01/18 06:40 Poikilocytosis 1+ 09/01/18 06:40 Anisocytosis 1+ 09/01/18 06:40 Microcytosis Not Reportable 09/01/18 06:40 Macrocytosis Not Reportable 09/01/18 06:40 Spherocytes Not Reportable 09/01/18 06:40 Pappenheimer Bodies Not Reportable 09/01/18 06:40 Sickle Cells Not Reportable 09/01/18 06:40 Target Cells Not Reportable 09/01/18 06:40 Tear Drop Cells Not Reportable 09/01/18 06:40 Ovalocytes Few 09/01/18 06:40 Helmet Cells Not Reportable 09/01/18 06:40 Broussard-[place] Bodies Not Reportable 09/01/18 06:40 [place] Rings Not Reportable 09/01/18 06:40 [place] Cells Not Reportable 09/01/18 06:40 Bite Cells Not Reportable 09/01/18 06:40 Crenated Cell Not Reportable 09/01/18 06:40 Elliptocytes Not Reportable 09/01/18 06:40 Acanthocytes (Spur) Not Reportable 09/01/18 06:40 Rouleaux Not Reportable 09/01/18 06:40 Hemoglobin C Crystals Not Reportable 09/01/18 06:40 Schistocytes Rare 09/01/18 06:40 Malaria parasites Not Reportable 09/01/18 06:40 Preet Bodies Not Reportable 09/01/18 06:40 Hem Pathologist Commnt No 09/01/18 06:40 PT 19.1 Sec. (12.2-14.9) H 09/05/18 04:08 INR 1.50 (0.87-1.13) H 09/05/18 04:08 APTT 43.1 Sec. (24.2-36.6) H 09/05/18 04:08 Sodium 143 mmol/L (137-145) 09/05/18 10:05 Potassium 4.0 mmol/L (3.6-5.0) D 09/05/18 10:05 Chloride 111.4 mmol/L (98-107) H 09/05/18 10:05 Carbon Dioxide 24 mmol/L (22-30) 09/05/18 10:05 Anion Gap 12 mmol/L 09/05/18 10:05 BUN 14 mg/dL (9-20) 09/05/18 10:05 Creatinine 0.7 mg/dL (0.8-1.5) L 09/05/18 10:05 Estimated GFR > 60 ml/min 09/05/18 10:05 BUN/Creatinine Ratio 20 % 09/05/18 10:05 Glucose 94 mg/dL (75-100) 09/05/18 10:05 Calcium 8.7 mg/dL (8.4-10.2) 09/05/18 10:05 Total Bilirubin 0.70 mg/dL (0.1-1.2) 08/31/18 19:33 AST 23 units/L (5-40) 08/31/18 19:33 ALT 13 units/L (7-56) 08/31/18 19:33 Alkaline Phosphatase 116 units/L (35-129) 08/31/18 19:33 Total Protein 6.4 g/dL (6.3-8.2) 08/31/18 19:33 Albumin 3.3 g/dL (3.9-5) L 08/31/18 19:33 Albumin/Globulin Ratio 1.1 % 08/31/18 19:33 Active Medications - Current Medications Current Medications: Generic Name Dose Route Start Last Admin Trade Name Freq PRN Reason Stop Dose Admin Acetaminophen 650 mg 09/01/18 05:01 09/03/18 21:45 Tylenol PO 650 mg Q4H PRN Administration Pain MILD(1-3)/Fever >100.5/ALEXANDER Carvedilol 12.5 mg 09/01/18 10:00 09/04/18 22:02 Coreg PO 12.5 mg BID RAFIA Administration Furosemide 40 mg 09/01/18 10:00 09/04/18 10:03 Lasix PO 40 mg QDAY RAFIA Administration Potassium Chloride 10 meq/ 1,005 mls @ 100 mls/hr 09/01/18 09:00 09/04/18 21:14 Dextrose IV Infused DIRECT RAFIA Infusion Vancomycin HCl 2,000 mg/ 540 mls @ 250 mls/hr 09/02/18 10:00 09/04/18 21:15 Sodium Chloride IV Infused Q24HR RAFIA Infusion Latanoprost 1 drops 09/03/18 22:00 09/04/18 22:15 Latanoprost 0.005% OU 1 drops HS RAFIA Administration Losartan Potassium 50 mg 09/01/18 10:00 09/04/18 10:04 Cozaar PO 50 mg QDAY RAFIA Administration Ondansetron HCl 4 mg 09/01/18 05:01 Zofran IV Q8H PRN Nausea And Vomiting Oxycodone/Acetaminophen 1 tab 09/01/18 01:35 09/01/18 17:55 Percocet 5/325 PO 1 tab Q4H PRN Administration Pain, Moderate (4-6) Potassium Chloride 40 meq 09/04/18 16:00 09/04/18 17:11 K-Dur PO 40 meq QDAY RAFIA Administration Pravastatin Sodium 40 mg 09/01/18 22:00 09/04/18 22:02 Pravachol PO 40 mg QHS RAFIA Administration Sodium Chloride 10 ml 09/01/18 10:00 09/04/18 22:02 Sodium Chloride Flush Syringe 10 Ml IV 10 ml BID RAFIA Administration Sodium Chloride 10 ml 09/01/18 05:01 Sodium Chloride Flush Syringe 10 Ml IV PRN PRN LINE FLUSH Timolol Maleate 1 drops 09/03/18 22:00 09/04/18 22:15 Timoptic OU 1 drops BID RAFIA Administration Warfarin Sodium 4 mg 09/03/18 17:00 09/04/18 17:11 Coumadin PO 4 mg [id number] RAFIA Administration Warfarin Sodium 2 mg 09/08/18 17:00 Coumadin PO Th@1700 [facility]
[2018-09-05] MEDS: LASIX PO SCH (12:25)
[2018-09-05] MEDS: TIMOPTIC OU SCH ×2 (12:25→21:22)
[2018-09-05] MEDS: K-DUR PO SCH (12:26)
[2018-09-05] MEDS: COZAAR PO SCH (12:30)
[2018-09-05] MEDS: COREG PO SCH (12:30)
--- NOTE | 2018-09-05 16:29 | Event Note ---
Date: 09/05/18 Attempted to call Pt's daughter multiple times today unsuccessfully. Will make the pt NPO after Mn for possible intervention tomorrow.
[2018-09-05] MEDS: COUMADIN PO SCH (18:17)
[2018-09-05] MEDS: PRAVACHOL PO SCH (21:21)
[2018-09-05] MEDS: LATANOPROST 0.005% OU SCH (21:24)
[2018-09-06] MEDS: COREG PO SCH ×3 (07:39→21:33)
[2018-09-06] MEDS: SODIUM CHLORIDE FLUSH SYRINGE 10 ML IV SCH ×3 (07:40→21:35)
[2018-09-06 08:52] LABS: INR 1.54 (0.87-1.13)
[2018-09-06 08:53] LABS: Partial Thromboplastin Time 38.3 Sec. (24.2-36.6)
[2018-09-06] MEDS: TIMOPTIC OU SCH ×2 (10:34→21:33)
[2018-09-06 11:29] LABS: BUN/Creatinine Ratio 23; Blood Urea Nitrogen 16 mg/dL (9-20); Calcium 8.9 mg/dL (8.4-10.2); Hemolysis Index 5
[2018-09-06] MEDS ORDERED: HEPARIN/NS 5000 UNIT/500ML(CATH LAB) 1,000 ML IR ONE (13:17)
[2018-09-06] MEDS ORDERED: XYLOCAINE 2% INFILTRATI ONE (13:17)
[2018-09-06] MEDS: K-DUR PO SCH (13:19)
[2018-09-06] MEDS: COZAAR PO SCH (13:19)
[2018-09-06] MEDS ORDERED: NACL 0.9% 500 ML 500 ML ONE (13:35)
[2018-09-06] MEDS ORDERED: VERSED ONE ×2 (13:36→14:12)
[2018-09-06] MEDS ORDERED: ANCEF/STERILE WATER 2 GM/20 ML 2 GM/20 ML SYRINGE IV ONE (13:48)
[2018-09-06] MEDS: SUBLIMAZE ONE ×2 (13:53→14:10)
[2018-09-06] MEDS: HEPARIN 10,000 UNITS/10 ML ONE ×2 (13:57→14:04)
[2018-09-06] MEDS ORDERED: SUBLIMAZE ONE (14:12)
--- NOTE | 2018-09-06 15:07 | Operative Report ---
Operative Report Operative Report: Date of procedure: 09/06/2018 Pre-procedure diagnosis: Ischemic ulceration, left lower extremity Post-procedure diagnosis: Same Procedure name(s): * Ultrasound-guided puncture of the right common femoral artery * Angiography of the proximal right lower extremity with supervision and interpretation * Angiography of the left lower extremity was supervision and interpretation * Percutaneous atherectomy of the left superficial femoral artery using HawkOne LX * Pretty diseased balloon angioplasty of the left superficial femoral artery using 6 mm x 80 mm drug coated balloon * Deployment of 6 [place] Angio-Seal in the right common femoral artery Surgeon: Jorge Blanton MD Anesthesia: Local w moderate sedation, start time: 1353 end time: 1438 toal time: 45 minutes or 3 anesthesia units EBL: Minimal Procedure indication: Patient is a 78-year-old man with peripheral arterial disease and nonhealing ulcers in his left lower extremity. Findings: There is severe stenosis of the left superficial femoral artery at the abductor canal. This was completely corrected by atherectomy and angioplasty. No immediate complication noted. Procedure description: The patient was placed on the table in the supine position. He was given appropriate anesthesia. The area over the right groin was prepped with ChloraPrep solution and draped in the usual sterile fashion. 2% lidocaine plain was used for local anesthesia. Under real-time ultrasound guidance, the right common femoral artery was cannulated using micropuncture technique. An 035 guidewire was placed and the 5 [place] sheath was placed. Injections were done through the 5 [place] sheath to look at the circulation in the proximal right lower cavity on the level of the knee. A rim catheter was then used to cross the aortic bifurcation and selective angiography was done of the left lower extremity. Catheters were used to inject selective arteries including the superficial femoral artery on the left. A significant narrowing of nearly 90% plus was noted in the distal superficial femoral artery. This area was treated with atherectomy over a spider wire. After atherectomy, a drug coated balloon was deployed with an excellent technical result noted afterward. The left superficial femoral artery was widely patent. There was a small amount of debris and the filter which was retrieved. There was no evidence of embolization of the distal arteries. All equipment was removed over a guidewire. A 6 [place] Angio-Seal was deployed without incident in the right common femoral artery. Hemostasis was complete. The patient tolerated the procedure well. Angiographic findings: Right common femoral artery is patent but at least moderately calcified. The superficial femoral artery on the right is patent but significant stenotic at the adductor canal where it has approximately a 60 percent diameter reduction. All vessels are at least moderately calcified. On the left, the common iliac arteries widely patent, the internal iliac arteries widely patent, the external iliac artery is widely patent, the common femoral artery is widely patent. The superficial femoral arteries diffusely mildly diseased until the adductor canal. At the adductor canal there is a nearly 90% stenosis in one segment. There is a discrete area approximately 8 cm in length that is diffusely stenotic. The popliteal artery is patent although calcified moderately. The anterior tibial artery is patent in its proximal portion but then his completely occluded in the midportion. The distal portion of the anterior tibial artery and dorsalis pedis artery shows up via collaterals at the level of the ankle. The tibioperoneal trunk is patent there is plaque at the origin of the peroneal artery but no significant luminal compromise noted. Runoff is via the patent posterior tibial artery and the peroneal artery down the level of the ankle.
[2018-09-06] MEDS: LASIX PO SCH (18:01)
[2018-09-06] MEDS: COUMADIN PO SCH (18:01)
--- NOTE | 2018-09-06 18:18 | Progress Note ---
Assessment and Plan Assessment and plan: 78-year-old male with a history of hypertension, CHF, lymphedema, the patient had had recent varicose surgery a few months ago with Dr. Blanton as an outpatient. He presents his outpatient PCP with complaints of significant bilateral actually swelling and multiple areas of skin ulceration. His PCP then sent into the hospital. PAST MEDICAL HISTORY:hypertension, CHF, lymphedema Diagnoses Cellulitis ruled out Llymphedema Venous stasis ulcers CHF, stable Hypertension -paroxysmal atrial fibrillation with hypercoagulable states Hypokalemia Plan -Local wound care, with compression for lymphedema, will need outpatient referral to lymphedema clinic -Vascular surgery consult appreciated, he is planned for inpatient's procedure for revascularization of lower extremities -Patient is fully anticoagulated for PAF Potassium was repleted History Interval history: The patient continues to complain of swelling in both legs, ulcers on both legs. No fever, no chest pain, no shortness of breath, no nausea, no vomiting Hospitalist Physical - Physical exam Narrative exam: General.: Appears well, no distress, nontoxic HEENT: Moist mucous membranes, extraocular muscles intact, no lymphadenopathy Neck: supple Cardiac: S1-S2 heard Lungs: clear to auscultation bilaterally Abdomen: soft , nontender, nondistended, bowel sounds positive Extremities: Lymphedema of bilateral lower extremities and multiple ulcerations Skin: no rash or lesions Neurologic: no gross focal deficits Psych: calm, and cooperative - Constitutional Vitals: Temp Pulse Resp BP Pulse Ox 98.3 F 73 18 116/63 96 09/06/18 18:00 09/06/18 18:00 09/06/18 18:00 09/06/18 18:00 09/06/18 18:00 General appearance: Present: well-nourished, other (Awake alert) Results - Labs CBC & Chem 7: 09/02/18 15:46 09/06/18 10:57 Labs: Laboratory Last Values WBC 5.1 K/mm3 (4.5-11.0) 09/02/18 15:46 RBC 3.63 M/mm3 (3.65-5.03) L 09/02/18 15:46 Hgb 9.9 gm/dl (11.8-15.2) L 09/02/18 15:46 Hct 32.0 % (35.5-45.6) L 09/02/18 15:46 MCV 88 fl (84-94) 09/02/18 15:46 MCH 27 pg (28-32) L 09/02/18 15:46 MCHC 31 % (32-34) L 09/02/18 15:46 RDW 19.2 % (13.2-15.2) H 09/02/18 15:46 Plt Count 103 K/mm3 (140-440) L 09/02/18 15:46 Lymph % (Auto) 16.8 % (13.4-35.0) 09/02/18 15:46 [place] % (Auto) 15.4 % (0.0-7.3) H 09/02/18 15:46 Eos % (Auto) 1.1 % (0.0-4.3) 09/02/18 15:46 Baso % (Auto) 0.8 % (0.0-1.8) 09/02/18 15:46 Lymph # 0.9 K/mm3 (1.2-5.4) L 09/02/18 15:46 [place] # 0.8 K/mm3 (0.0-0.8) 09/02/18 15:46 Eos # 0.1 K/mm3 (0.0-0.4) 09/02/18 15:46 Baso # 0.0 K/mm3 (0.0-0.1) 09/02/18 15:46 Add Manual Diff Complete 09/01/18 06:40 Total Counted 100 09/01/18 06:40 Seg Neutrophils % 65.9 % (40.0-70.0) 09/02/18 15:46 Seg Neuts % (Manual) 80.0 % (40.0-70.0) H 09/01/18 06:40 Band Neutrophils % 0 % 09/01/18 06:40 Lymphocytes % (Manual) 8.0 % (13.4-35.0) L 09/01/18 06:40 Reactive Lymphs % (Man) 0 % 09/01/18 06:40 Monocytes % (Manual) 10.0 % (0.0-7.3) H 09/01/18 06:40 Eosinophils % (Manual) 1.0 % (0.0-4.3) 09/01/18 06:40 Basophils % (Manual) 1.0 % (0.0-1.8) 09/01/18 06:40 Metamyelocytes % 0 % 09/01/18 06:40 Myelocytes % 0 % 09/01/18 06:40 Promyelocytes % 0 % 09/01/18 06:40 Blast Cells % 0 % 09/01/18 06:40 Nucleated RBC % Not Reportable 09/01/18 06:40 Seg Neutrophils # 3.4 K/mm3 (1.8-7.7) 09/02/18 15:46 Seg Neutrophils # Man 3.9 K/mm3 (1.8-7.7) 09/01/18 06:40 Band Neutrophils # 0.0 K/mm3 09/01/18 06:40 Lymphocytes # (Manual) 0.4 K/mm3 (1.2-5.4) L 09/01/18 06:40 Abs React Lymphs (Man) 0.0 K/mm3 09/01/18 06:40 Monocytes # (Manual) 0.5 K/mm3 (0.0-0.8) 09/01/18 06:40 Eosinophils # (Manual) 0.0 K/mm3 (0.0-0.4) 09/01/18 06:40 Basophils # (Manual) 0.0 K/mm3 (0.0-0.1) 09/01/18 06:40 Metamyelocytes # 0.0 K/mm3 09/01/18 06:40 Myelocytes # 0.0 K/mm3 09/01/18 06:40 Promyelocytes # 0.0 K/mm3 09/01/18 06:40 Blast Cells # 0.0 K/mm3 09/01/18 06:40 WBC Morphology Not Reportable 09/01/18 06:40 Hypersegmented Neuts Not Reportable 09/01/18 06:40 Hyposegmented Neuts Not Reportable 09/01/18 06:40 Hypogranular Neuts Not Reportable 09/01/18 06:40 Smudge Cells Not Reportable 09/01/18 06:40 Toxic Granulation Not Reportable 09/01/18 06:40 Toxic Vacuolation Not Reportable 09/01/18 06:40 Dohle Bodies Not Reportable 09/01/18 06:40 Pelger-Huet Anomaly Not Reportable 09/01/18 06:40 Keith Rods Not Reportable 09/01/18 06:40 Platelet Estimate Consistent w auto 09/01/18 06:40 Clumped Platelets Not Reportable 09/01/18 06:40 Plt Clumps, EDTA Not Reportable 09/01/18 06:40 Large Platelets Not Reportable 09/01/18 06:40 Giant Platelets Not Reportable 09/01/18 06:40 Platelet Satelliting Not Reportable 09/01/18 06:40 Plt Morphology Comment Not Reportable 09/01/18 06:40 RBC Morphology Not Reportable 09/01/18 06:40 Dimorphic RBCs Not Reportable 09/01/18 06:40 Polychromasia Not Reportable 09/01/18 06:40 Hypochromasia Not Reportable 09/01/18 06:40 Poikilocytosis 1+ 09/01/18 06:40 Anisocytosis 1+ 09/01/18 06:40 Microcytosis Not Reportable 09/01/18 06:40 Macrocytosis Not Reportable 09/01/18 06:40 Spherocytes Not Reportable 09/01/18 06:40 Pappenheimer Bodies Not Reportable 09/01/18 06:40 Sickle Cells Not Reportable 09/01/18 06:40 Target Cells Not Reportable 09/01/18 06:40 Tear Drop Cells Not Reportable 09/01/18 06:40 Ovalocytes Few 09/01/18 06:40 Helmet Cells Not Reportable 09/01/18 06:40 Broussard-[place] Bodies Not Reportable 09/01/18 06:40 [place] Rings Not Reportable 09/01/18 06:40 [place] Cells Not Reportable 09/01/18 06:40 Bite Cells Not Reportable 09/01/18 06:40 Crenated Cell Not Reportable 09/01/18 06:40 Elliptocytes Not Reportable 09/01/18 06:40 Acanthocytes (Spur) Not Reportable 09/01/18 06:40 Rouleaux Not Reportable 09/01/18 06:40 Hemoglobin C Crystals Not Reportable 09/01/18 06:40 Schistocytes Rare 09/01/18 06:40 Malaria parasites Not Reportable 09/01/18 06:40 Preet Bodies Not Reportable 09/01/18 06:40 Hem Pathologist Commnt No 09/01/18 06:40 PT 19.5 Sec. (12.2-14.9) H 09/06/18 07:45 INR 1.54 (0.87-1.13) H 09/06/18 07:45 APTT 38.3 Sec. (24.2-36.6) H 09/06/18 07:45 Sodium 146 mmol/L (137-145) H 09/06/18 10:57 Potassium 4.5 mmol/L (3.6-5.0) 09/06/18 10:57 Chloride 113.1 mmol/L (98-107) H 09/06/18 10:57 Carbon Dioxide 24 mmol/L (22-30) 09/06/18 10:57 Anion Gap 13 mmol/L 09/06/18 10:57 BUN 16 mg/dL (9-20) 09/06/18 10:57 Creatinine 0.7 mg/dL (0.8-1.5) L 09/06/18 10:57 Estimated GFR > 60 ml/min 09/06/18 10:57 BUN/Creatinine Ratio 23 % 09/06/18 10:57 Glucose 79 mg/dL (75-100) 09/06/18 10:57 POC Glucose 90 (70-105) 09/06/18 13:21 Calcium 8.9 mg/dL (8.4-10.2) 09/06/18 10:57 Total Bilirubin 0.70 mg/dL (0.1-1.2) 08/31/18 19:33 AST 23 units/L (5-40) 08/31/18 19:33 ALT 13 units/L (7-56) 08/31/18 19:33 Alkaline Phosphatase 116 units/L (35-129) 08/31/18 19:33 Total Protein 6.4 g/dL (6.3-8.2) 08/31/18 19:33 Albumin 3.3 g/dL (3.9-5) L 08/31/18 19:33 Albumin/Globulin Ratio 1.1 % 08/31/18 19:33 Active Medications - Current Medications Current Medications: Generic Name Dose Route Start Last Admin Trade Name Freq PRN Reason Stop Dose Admin Acetaminophen 650 mg 09/01/18 05:01 09/03/18 21:45 Tylenol PO 650 mg Q4H PRN Administration Pain MILD(1-3)/Fever >100.5/ALEXANDER Carvedilol 12.5 mg 09/01/18 10:00 09/06/18 10:18 Coreg PO Not Given BID [facility] Furosemide 40 mg 09/01/18 10:00 09/06/18 18:01 Lasix PO 40 mg QDAY RAFIA Administration Potassium Chloride 10 meq/ 1,005 mls @ 100 mls/hr 09/01/18 09:00 09/04/18 21:14 Dextrose IV Infused DIRECT RAFIA Infusion Latanoprost 1 drops 09/03/18 22:00 09/05/18 21:24 Latanoprost 0.005% OU 1 drops HS RAFIA Administration Losartan Potassium 50 mg 09/01/18 10:00 09/06/18 13:19 Cozaar PO Not Given QDAY [facility] Ondansetron HCl 4 mg 09/01/18 05:01 Zofran IV Q8H PRN Nausea And Vomiting Oxycodone/Acetaminophen 1 tab 09/01/18 01:35 09/01/18 17:55 Percocet 5/325 PO 1 tab Q4H PRN Administration Pain, Moderate (4-6) Potassium Chloride 40 meq 09/04/18 16:00 09/06/18 13:19 K-Dur PO Not Given QDAY [facility] Pravastatin Sodium 40 mg 09/01/18 22:00 09/05/18 21:21 Pravachol PO 40 mg QHS RAFIA Administration Sodium Chloride 10 ml 09/01/18 10:00 09/06/18 11:00 Sodium Chloride Flush Syringe 10 Ml IV Not Given BID RAFIA Sodium Chloride 10 ml 09/01/18 05:01 Sodium Chloride Flush Syringe 10 Ml IV PRN PRN LINE FLUSH Timolol Maleate 1 drops 09/03/18 22:00 09/05/18 21:22 Timoptic OU 1 drops BID RAFIA Administration Warfarin Sodium 4 mg 09/03/18 17:00 09/06/18 18:01 Coumadin PO 4 mg [id number] RAFIA Administration Warfarin Sodium 2 mg 09/08/18 17:00 Coumadin PO Th@1700 [facility] Nutrition/Malnutrition Assess - Dietary Evaluation Nutrition/Malnutrition Findings: Nutrition Notes Start: 09/05/18 17:05 Freq: Status: Active Protocol: Document 09/05/18 17:06 OL (Rec: 09/05/18 17:08 OL [id number]) Nutrition Notes Need for Assessment generated from: Education Initial or Follow up Brief Note Current Diet Low Na Labs/Tests Reviewed Pertinent Medications coumadin Height 6 ft Weight 107.8 kg [place] Body Weight (kg) 80.90 BMI 32.2 Subjective/Other Information RD screen for coumadin education needs. Pt. has been on coumadin for 4 years and is familiar with restrictions. Pt. requesting refresher of information. #1 Nutrition Diagnosis Food and nutrition-related knowledge deficit Etiology coumadin/vitamin K DNI As Evidenced by Signs and Symptoms pt. requesting refresher of potential food interactions Nutrition Intervention Teaching Recipient Patient Learning Readiness Good Teaching Methods Discussion,Handout Response to Teaching Verbalize understanding Education Handouts Provided Vitamin K and medications Revisit per MD consult or patient Sign Off request:
[2018-09-06] MEDS: PRAVACHOL PO SCH (21:33)
[2018-09-06] MEDS: LATANOPROST 0.005% OU SCH (21:34)
[2018-09-06] MEDS: PERCOCET 5/325 PO PRN (22:14)
[2018-09-07 04:55] LABS: INR 1.57 (0.87-1.13)
[2018-09-07 04:56] LABS: Partial Thromboplastin Time 42.6 Sec. (24.2-36.6)
[2018-09-07] MEDS: COREG PO SCH ×2 (10:03→21:10)
[2018-09-07] MEDS: K-DUR PO SCH (10:04)
[2018-09-07] MEDS: LASIX PO SCH (10:04)
[2018-09-07] MEDS: TIMOPTIC OU SCH ×2 (10:05→21:08)
[2018-09-07] MEDS: SODIUM CHLORIDE FLUSH SYRINGE 10 ML IV SCH ×2 (10:06→21:09)
[2018-09-07 11:23] LABS: BUN/Creatinine Ratio 27; Blood Urea Nitrogen 16 mg/dL (9-20); Calcium 8.9 mg/dL (8.4-10.2); Hemolysis Index 112
[2018-09-07] MEDS: LOVENOX SUB-Q SCH ×2 (11:58→21:09)
--- NOTE | 2018-09-07 14:08 | Progress Note ---
Assessment and Plan Assessment and plan: 78-year-old male with a history of hypertension, CHF, lymphedema, the patient had had recent varicose surgery a few months ago with Dr. Blanton as an outpatient. He presents his outpatient PCP with complaints of significant bilateral actually swelling and multiple areas of skin ulceration. His PCP then sent into the hospital. PAST MEDICAL HISTORY:hypertension, CHF, lymphedema Diagnoses Cellulitis ruled out Llymphedema Venous stasis ulcers CHF, stable Hypertension -paroxysmal atrial fibrillation with hypercoagulable states Hypokalemia Plan -Local wound care, with compression for lymphedema, will need outpatient referral to lymphedema clinic -Vascular surgery consult appreciated, sp atherectomy and angioplasty of left superficial femoral artery at the abductor canal on 09/06 -Patient is fully anticoagulated for PAF Potassium was repleted History Interval history: The patient continues to complain of swelling in both legs, ulcers on both legs. No fever, no chest pain, no shortness of breath, no nausea, no vomiting Hospitalist Physical - Physical exam Narrative exam: General.: Appears well, no distress, nontoxic HEENT: Moist mucous membranes, extraocular muscles intact, no lymphadenopathy Neck: supple Cardiac: S1-S2 heard Lungs: clear to auscultation bilaterally Abdomen: soft , nontender, nondistended, bowel sounds positive Extremities: Lymphedema of bilateral lower extremities and multiple ulcerations Skin: no rash or lesions Neurologic: no gross focal deficits Psych: calm, and cooperative - Constitutional Vitals: Temp Pulse Resp BP Pulse Ox 98.3 F 77 22 130/56 96 09/07/18 07:30 09/07/18 10:03 09/07/18 07:30 09/07/18 10:03 09/07/18 07:30 General appearance: Present: well-nourished, other (Awake alert) Results - Labs CBC & Chem 7: 09/02/18 15:46 09/07/18 10:33 Labs: Laboratory Last Values WBC 5.1 K/mm3 (4.5-11.0) 09/02/18 15:46 RBC 3.63 M/mm3 (3.65-5.03) L 09/02/18 15:46 Hgb 9.9 gm/dl (11.8-15.2) L 09/02/18 15:46 Hct 32.0 % (35.5-45.6) L 09/02/18 15:46 MCV 88 fl (84-94) 09/02/18 15:46 MCH 27 pg (28-32) L 09/02/18 15:46 MCHC 31 % (32-34) L 09/02/18 15:46 RDW 19.2 % (13.2-15.2) H 09/02/18 15:46 Plt Count 103 K/mm3 (140-440) L 09/02/18 15:46 Lymph % (Auto) 16.8 % (13.4-35.0) 09/02/18 15:46 [place] % (Auto) 15.4 % (0.0-7.3) H 09/02/18 15:46 Eos % (Auto) 1.1 % (0.0-4.3) 09/02/18 15:46 Baso % (Auto) 0.8 % (0.0-1.8) 09/02/18 15:46 Lymph # 0.9 K/mm3 (1.2-5.4) L 09/02/18 15:46 [place] # 0.8 K/mm3 (0.0-0.8) 09/02/18 15:46 Eos # 0.1 K/mm3 (0.0-0.4) 09/02/18 15:46 Baso # 0.0 K/mm3 (0.0-0.1) 09/02/18 15:46 Add Manual Diff Complete 09/01/18 06:40 Total Counted 100 09/01/18 06:40 Seg Neutrophils % 65.9 % (40.0-70.0) 09/02/18 15:46 Seg Neuts % (Manual) 80.0 % (40.0-70.0) H 09/01/18 06:40 Band Neutrophils % 0 % 09/01/18 06:40 Lymphocytes % (Manual) 8.0 % (13.4-35.0) L 09/01/18 06:40 Reactive Lymphs % (Man) 0 % 09/01/18 06:40 Monocytes % (Manual) 10.0 % (0.0-7.3) H 09/01/18 06:40 Eosinophils % (Manual) 1.0 % (0.0-4.3) 09/01/18 06:40 Basophils % (Manual) 1.0 % (0.0-1.8) 09/01/18 06:40 Metamyelocytes % 0 % 09/01/18 06:40 Myelocytes % 0 % 09/01/18 06:40 Promyelocytes % 0 % 09/01/18 06:40 Blast Cells % 0 % 09/01/18 06:40 Nucleated RBC % Not Reportable 09/01/18 06:40 Seg Neutrophils # 3.4 K/mm3 (1.8-7.7) 09/02/18 15:46 Seg Neutrophils # Man 3.9 K/mm3 (1.8-7.7) 09/01/18 06:40 Band Neutrophils # 0.0 K/mm3 09/01/18 06:40 Lymphocytes # (Manual) 0.4 K/mm3 (1.2-5.4) L 09/01/18 06:40 Abs React Lymphs (Man) 0.0 K/mm3 09/01/18 06:40 Monocytes # (Manual) 0.5 K/mm3 (0.0-0.8) 09/01/18 06:40 Eosinophils # (Manual) 0.0 K/mm3 (0.0-0.4) 09/01/18 06:40 Basophils # (Manual) 0.0 K/mm3 (0.0-0.1) 09/01/18 06:40 Metamyelocytes # 0.0 K/mm3 09/01/18 06:40 Myelocytes # 0.0 K/mm3 09/01/18 06:40 Promyelocytes # 0.0 K/mm3 09/01/18 06:40 Blast Cells # 0.0 K/mm3 09/01/18 06:40 WBC Morphology Not Reportable 09/01/18 06:40 Hypersegmented Neuts Not Reportable 09/01/18 06:40 Hyposegmented Neuts Not Reportable 09/01/18 06:40 Hypogranular Neuts Not Reportable 09/01/18 06:40 Smudge Cells Not Reportable 09/01/18 06:40 Toxic Granulation Not Reportable 09/01/18 06:40 Toxic Vacuolation Not Reportable 09/01/18 06:40 Dohle Bodies Not Reportable 09/01/18 06:40 Pelger-Huet Anomaly Not Reportable 09/01/18 06:40 Keith Rods Not Reportable 09/01/18 06:40 Platelet Estimate Consistent w auto 09/01/18 06:40 Clumped Platelets Not Reportable 09/01/18 06:40 Plt Clumps, EDTA Not Reportable 09/01/18 06:40 Large Platelets Not Reportable 09/01/18 06:40 Giant Platelets Not Reportable 09/01/18 06:40 Platelet Satelliting Not Reportable 09/01/18 06:40 Plt Morphology Comment Not Reportable 09/01/18 06:40 RBC Morphology Not Reportable 09/01/18 06:40 Dimorphic RBCs Not Reportable 09/01/18 06:40 Polychromasia Not Reportable 09/01/18 06:40 Hypochromasia Not Reportable 09/01/18 06:40 Poikilocytosis 1+ 09/01/18 06:40 Anisocytosis 1+ 09/01/18 06:40 Microcytosis Not Reportable 09/01/18 06:40 Macrocytosis Not Reportable 09/01/18 06:40 Spherocytes Not Reportable 09/01/18 06:40 Pappenheimer Bodies Not Reportable 09/01/18 06:40 Sickle Cells Not Reportable 09/01/18 06:40 Target Cells Not Reportable 09/01/18 06:40 Tear Drop Cells Not Reportable 09/01/18 06:40 Ovalocytes Few 09/01/18 06:40 Helmet Cells Not Reportable 09/01/18 06:40 [place] Bodies Not Reportable 09/01/18 06:40 [place] Rings Not Reportable 09/01/18 06:40 [place] Cells Not Reportable 09/01/18 06:40 Bite Cells Not Reportable 09/01/18 06:40 Crenated Cell Not Reportable 09/01/18 06:40 Elliptocytes Not Reportable 09/01/18 06:40 Acanthocytes (Spur) Not Reportable 09/01/18 06:40 Rouleaux Not Reportable 09/01/18 06:40 Hemoglobin C Crystals Not Reportable 09/01/18 06:40 Schistocytes Rare 09/01/18 06:40 Malaria parasites Not Reportable 09/01/18 06:40 Preet Bodies Not Reportable 09/01/18 06:40 Hem Pathologist Commnt No 09/01/18 06:40 PT 19.8 Sec. (12.2-14.9) H 09/07/18 04:13 INR 1.57 (0.87-1.13) H 09/07/18 04:13 APTT 42.6 Sec. (24.2-36.6) H 09/07/18 04:13 Sodium 139 mmol/L (137-145) 09/07/18 10:33 Potassium 4.9 mmol/L (3.6-5.0) 09/07/18 10:33 Chloride 107.8 mmol/L (98-107) H 09/07/18 10:33 Carbon Dioxide 23 mmol/L (22-30) 09/07/18 10:33 Anion Gap 13 mmol/L 09/07/18 10:33 BUN 16 mg/dL (9-20) 09/07/18 10:33 Creatinine 0.6 mg/dL (0.8-1.5) L 09/07/18 10:33 Estimated GFR > 60 ml/min 09/07/18 10:33 BUN/Creatinine Ratio 27 % 09/07/18 10:33 Glucose 100 mg/dL (75-100) 09/07/18 10:33 POC Glucose 90 (70-105) 09/06/18 13:21 Calcium 8.9 mg/dL (8.4-10.2) 09/07/18 10:33 Total Bilirubin 0.70 mg/dL (0.1-1.2) 08/31/18 19:33 AST 23 units/L (5-40) 08/31/18 19:33 ALT 13 units/L (7-56) 08/31/18 19:33 Alkaline Phosphatase 116 units/L (35-129) 08/31/18 19:33 Total Protein 6.4 g/dL (6.3-8.2) 08/31/18 19:33 Albumin 3.3 g/dL (3.9-5) L 08/31/18 19:33 Albumin/Globulin Ratio 1.1 % 08/31/18 19:33 Active Medications - Current Medications Current Medications: Generic Name Dose Route Start Last Admin Trade Name Freq PRN Reason Stop Dose Admin Acetaminophen 650 mg 09/01/18 05:01 09/03/18 21:45 Tylenol PO 650 mg Q4H PRN Administration Pain MILD(1-3)/Fever >100.5/ALEXANDER Carvedilol 12.5 mg 09/01/18 10:00 09/07/18 10:03 Coreg PO 12.5 mg BID RAFIA Administration Enoxaparin Sodium 100 mg 09/07/18 12:00 09/07/18 11:58 Lovenox SUB-Q 100 mg Q12HR RAFIA Administration Furosemide 40 mg 09/01/18 10:00 09/07/18 10:04 Lasix PO 40 mg QDAY [facility] Administration Potassium Chloride 10 meq/ 1,005 mls @ 100 mls/hr 09/01/18 09:00 09/04/18 21:14 Dextrose IV Infused DIRECT RAFIA Infusion Latanoprost 1 drops 09/03/18 22:00 09/06/18 21:34 Latanoprost 0.005% OU 1 drops HS [facility] Administration Losartan Potassium 50 mg 09/01/18 10:00 09/06/18 13:19 Cozaar PO Not Given QDAY [facility] Ondansetron HCl 4 mg 09/01/18 05:01 Zofran IV Q8H PRN Nausea And Vomiting Oxycodone/Acetaminophen 1 tab 09/01/18 01:35 09/06/18 22:14 Percocet 5/325 PO 1 tab Q4H PRN Administration Pain, Moderate (4-6) Potassium Chloride 40 meq 09/04/18 16:00 09/07/18 10:04 K-Dur PO 40 meq QDAY [facility] Administration Pravastatin Sodium 40 mg 09/01/18 22:00 09/06/18 21:33 Pravachol PO 40 mg QHS RAFIA Administration Sodium Chloride 10 ml 09/01/18 10:00 09/07/18 10:06 Sodium Chloride Flush Syringe 10 Ml IV 10 ml BID [facility]IA Administration Sodium Chloride 10 ml 09/01/18 05:01 Sodium Chloride Flush Syringe 10 Ml IV PRN PRN LINE FLUSH Timolol Maleate 1 drops 09/03/18 22:00 09/07/18 10:05 Timoptic OU 1 drops BID [facility] Administration Warfarin Sodium 4 mg 09/03/18 17:00 09/06/18 18:01 Coumadin PO 4 mg [id number] RAFIA Administration Warfarin Sodium 2 mg 09/08/18 17:00 Coumadin PO Th@1700 [facility] Nutrition/Malnutrition Assess - Dietary Evaluation Nutrition/Malnutrition Findings: Nutrition Notes Start: 09/05/18 17:05 Freq: Status: Active Protocol: Document 09/05/18 17:06 OL (Rec: 09/05/18 17:08 OL [id number]) Nutrition Notes Need for Assessment generated from: Education Initial or Follow up Brief Note Current Diet Low Na Labs/Tests Reviewed Pertinent Medications coumadin Height 6 ft Weight 107.8 kg [place] Body Weight (kg) 80.90 BMI 32.2 Subjective/Other Information RD screen for coumadin education needs. Pt. has been on coumadin for 4 years and is familiar with restrictions. Pt. requesting refresher of information. #1 Nutrition Diagnosis Food and nutrition-related knowledge deficit Etiology coumadin/vitamin K DNI As Evidenced by Signs and Symptoms pt. requesting refresher of potential food interactions Nutrition Intervention Teaching Recipient Patient Learning Readiness Good Teaching Methods Discussion,Handout Response to Teaching Verbalize understanding Education Handouts Provided Vitamin K and medications Revisit per MD consult or patient Sign Off request:
[2018-09-07] MEDS: KCL 10 MEQ in D5W 1,000 ML IV SCH (15:16)
[2018-09-07] MEDS: COZAAR PO SCH (15:19)
--- NOTE | 2018-09-07 18:29 | Progress Note ---
Assessment and Plan Pt s/p LLE sfa atherectomy with Balloon angioplasty with DCB. Doing well following his procedure. He will need to f/u in our office in ~2wks (he should call for appt) to be eval'd for possible RLE intervention. I spoke to his daughter the other day and stressed the importance of controlling his swelling to get the wounds to heal. I emphasized that this is a life long problem that will take constant care to keep controlled. She stated understanding. No objections from a vascular surgery stand point to d/c once cleared medically. Subjective Date of service: 09/07/18 Principal diagnosis: lymphedema, PAD Interval history: Pt awake and alert, without post-operative complaint. Objective - Constitutional Vitals: Vital Signs - 12hr 09/07/18 09/07/18 09/07/18 07:30 10:03 15:19 Temperature 98.3 F Pulse Rate 56 L 77 70 Respiratory 22 Rate Blood Pressure 130/56 132/58 Blood Pressure 123/51 [Left] O2 Sat by Pulse 96 Oximetry 09/07/18 15:32 Temperature 98.3 F Pulse Rate 70 Respiratory 70 H Rate Blood Pressure Blood Pressure 130/66 [Left] O2 Sat by Pulse 96 Oximetry General appearance: Present: no acute distress, obese - EENT Eyes: EOM intact ENT: hearing intact - Neck Neck: supple - Respiratory Respiratory effort: normal Extremities: no ischemia, abnormal (Right groin soft. Bandage intact without obvious signs of post-operative bleeding) Extremity abnormal: ulceration (bilat lower ext bandages CDI) - Neurologic Neurologic: no focal deficits - Psychiatric Psychiatric: appropriate mood/affect, intact judgment & insight, cooperative - Labs CBC & Chem 7: 09/02/18 15:46 09/07/18 10:33 Labs: Abnormal lab results 09/07/18 09/07/18 Range/Units 04:13 10:33 PT 19.8 H (12.2-14.9) Sec. INR 1.57 H (0.87-1.13) APTT 42.6 H (24.2-36.6) Sec. Chloride 107.8 H (98-107) mmol/L Creatinine 0.6 L (0.8-1.5) mg/dL Medications & Allergies - Medications Allergies/Adverse Reactions: Allergies No Known Allergies Allergy (Verified 07/20/14 06:59) Home Medications: Home Medications Medication Instructions Recorded Confirmed Last Taken Type Furosemide [Lasix TAB] 40 mg PO QDAY 07/20/14 08/31/18 08/31/18 History Irbesartan [Avapro] 150 mg PO QDAY 07/20/14 08/31/18 08/31/18 History Potassium Chloride 10 meq PO QDAY 07/20/14 08/31/18 07/19/14 History Pravastatin [Pravachol] 40 mg PO QHS 07/20/14 08/31/18 07/19/14 History Timolol [Betimol] 1 drop OU BID 07/20/14 08/31/18 07/20/14 06:30 History Warfarin Sodium [Coumadin] 4 mg PO QDAY 07/20/14 08/31/18 07/15/14 History Carvedilol [Coreg] 12.5 mg PO BID 08/31/18 08/31/18 08/31/18 History Latanoprost [Xalatan] 1 drop OU QPM 08/31/18 08/31/18 Unknown History Active Medications: Generic Name Dose Route Start Last Admin Trade Name Freq PRN Reason Stop Dose Admin Acetaminophen 650 mg 09/01/18 05:01 09/03/18 21:45 Tylenol PO 650 mg Q4H PRN Administration Pain MILD(1-3)/Fever >100.5/[place]ER Carvedilol 12.5 mg 09/01/18 10:00 09/07/18 10:03 Coreg PO 12.5 mg BID RAFIA Administration Enoxaparin Sodium 100 mg 09/07/18 12:00 09/07/18 11:58 Lovenox SUB-Q 100 mg Q12HR RAFIA Administration Furosemide 40 mg 09/01/18 10:00 09/07/18 10:04 Lasix PO 40 mg QDAY RAFIA Administration Potassium Chloride 10 meq/ 1,005 mls @ 100 mls/hr 09/01/18 09:00 09/07/18 15:16 Dextrose IV 100 mls/hr DIRECT RAFIA Administration Latanoprost 1 drops 09/03/18 22:00 09/06/18 21:34 Latanoprost 0.005% OU 1 drops HS RAFIA Administration Losartan Potassium 50 mg 09/01/18 10:00 09/07/18 15:19 Cozaar PO 50 mg QDAY RAFIA Administration Ondansetron HCl 4 mg 09/01/18 05:01 Zofran IV Q8H PRN Nausea And Vomiting Oxycodone/Acetaminophen 1 tab 09/01/18 01:35 09/06/18 22:14 Percocet 5/325 PO 1 tab Q4H PRN Administration Pain, Moderate (4-6) Potassium Chloride 40 meq 09/04/18 16:00 09/07/18 10:04 K-Dur PO 40 meq QDAY RAFIA Administration Pravastatin Sodium 40 mg 09/01/18 22:00 09/06/18 21:33 Pravachol PO 40 mg QHS RAFIA Administration Sodium Chloride 10 ml 09/01/18 10:00 09/07/18 10:06 Sodium Chloride Flush Syringe 10 Ml IV 10 ml BID RAFIA Administration Sodium Chloride 10 ml 09/01/18 05:01 Sodium Chloride Flush Syringe 10 Ml IV PRN PRN LINE FLUSH Timolol Maleate 1 drops 09/03/18 22:00 09/07/18 10:05 Timoptic OU 1 drops BID RAFIA Administration Warfarin Sodium 4 mg 09/03/18 17:00 09/06/18 18:01 Coumadin PO 4 mg [id number] RAFIA Administration Warfarin Sodium 2 mg 09/08/18 17:00 Coumadin PO Th@1700 [facility]
[2018-09-07] MEDS: COUMADIN PO SCH (19:27)
[2018-09-07] MEDS: LATANOPROST 0.005% OU SCH (21:09)
[2018-09-07] MEDS: PRAVACHOL PO SCH (21:09)
[2018-09-08] MEDS: KCL 10 MEQ in D5W 1,000 ML IV SCH (02:54)
[2018-09-08 06:45] LABS: INR 1.68 (0.87-1.13)
[2018-09-08 06:46] LABS: Partial Thromboplastin Time 55.2 Sec. (24.2-36.6)
[2018-09-08] MEDS: COZAAR PO SCH (09:00)
[2018-09-08] MEDS: LASIX PO SCH (09:16)
--- NOTE | 2018-09-08 09:53 | Discharge Summary ---
Providers - Providers Date of Admission: 08/31/18 23:21 Attending physician: VERONICA COVARRUBIAS MD 08/31/18 20:19 Consult to Physician [CONS] Stat Comment: Dr. Bundy spoke with Dr. David @ 2014 Consulting Provider: RANJEET DAVID Physician Instructions: Reason For Exam: bilateral lower extremity lymphedema with cellulit 09/01/18 10:32 Consult to Wound/ET Nurse [CONS] Routine Reason For Exam: wound eval 09/07/18 18:23 Consult to Case Management [CONS] Routine Services Needed at Discharge: Other Home Health Services Notified:: OVERNIGHT HOUSEPERSON Additional Physician Instructions: Eval options for outpt Lymphedema clinic, manual lymphadic drainage. HHN for wound care. Primary care physician: Afsaneh PEARSON MD Hospitalization Condition: Stable Hospital course: 78-year-old male with a history of hypertension, CHF, lymphedema, the patient had had recent varicose surgery a few months ago with Dr. David as an outpatient. He presents his outpatient PCP with complaints of significant bilateral actually swelling and multiple areas of skin ulceration. His PCP then sent into the hospital. PAST MEDICAL HISTORY:hypertension, CHF, lymphedema Diagnoses Cellulitis ruled out Llymphedema Venous stasis ulcers CHF, stable Hypertension -paroxysmal atrial fibrillation with hypercoagulable states Hypokalemia Plan -Local wound care, with compression for lymphedema, was given outpatient referral to lymphedema clinic -Vascular surgery consult appreciated, sp atherectomy and angioplasty of left superficial femoral artery at the abductor canal on 09/06 -Patient is fully anticoagulated for PAF with warfarin Potassium was repleted He is being dc with home wound care, it was stressed that his daughter about bilateral lower extremity lymphedema is a lifetime problem. He would need lifelong wound care and compression to his lower extremities. She verbalized understanding. Disposition: [id number] HOME UNDER HOME [facility] Time spent for discharge: 35 minutes Core Measure Documentation - Palliative Care Palliative Care/ Comfort Measures: Not Applicable - Core Measures Any of the following diagnoses?: none Exam - Physical Exam Narrative exam: General.: Appears well, no distress, nontoxic HEENT: Moist mucous membranes, extraocular muscles intact, no lymphadenopathy Neck: supple Cardiac: S1-S2 heard Lungs: clear to auscultation bilaterally Abdomen: soft , nontender, nondistended, bowel sounds positive Extremities: Lymphedema of bilateral lower extremities and multiple ulcerations Skin: no rash or lesions Neurologic: no gross focal deficits Psych: calm, and cooperative - Constitutional Vitals: Temp Pulse Resp BP Pulse Ox 98.4 F 65 20 136/54 98 09/08/18 08:17 09/08/18 08:17 09/08/18 08:17 09/08/18 08:17 09/08/18 08:17 Plan Additional Instructions: Please follow up which her doctor and have your INR which is your Coumadin/warfarin level checked within 3 days of discharge from the hospital. [facility] [Referring] - 3-5 Days Prescriptions: Enoxaparin [Lovenox] 100 mg SUB-Q Q12HR #14 syringe oxyCODONE /ACETAMINOPHEN [Percocet 5/325 mg] 1 tab PO Q4H PRN #20 tablet PRN Reason: Pain, Moderate (4-6) Other Discharge Orders: Post Acute Services Location: None Selected
[2018-09-08] MEDS: LOVENOX SUB-Q SCH (10:14)
[2018-09-08] MEDS: SODIUM CHLORIDE FLUSH SYRINGE 10 ML IV SCH (10:15)
[2018-09-08] MEDS: COREG PO SCH (10:15)
[2018-09-08] MEDS: K-DUR PO SCH (10:15)
[2018-09-08] MEDS: TIMOPTIC OU SCH (10:21)
[2018-09-08 16:10] VITALS: BP 147/64
[2018-09-08 17:00] LABS: BUN/Creatinine Ratio 21; Blood Urea Nitrogen 17 mg/dL (9-20); Calcium 9.2 mg/dL (8.4-10.2); Hemolysis Index 22
[2018-09-08] MEDS ORDERED: COUMADIN PO SCH (17:00)
== END 2018-09-08 19:40 | disposition home health service (06) | DRG 271 ==
LOC: ED 18:06 → 3B-SURG 23:21
PROVIDERS: ADMIT Internal Medicine; ATTEND Internal Medicine
PROC: B41G1ZZ Fluoroscopy of Left Lower Extremity Arteries using Low Osmolar Contrast (ICD-10-PCS; principal; 2018-09-06)
PROC: 04CL3ZZ Extirpation of Matter from Left Femoral Artery, Percutaneous Approach (ICD-10-PCS; 2018-09-06)
PROC: 047L3Z1 Dilation of Left Femoral Artery using Drug-Coated Balloon, Percutaneous Approach (ICD-10-PCS; 2018-09-06)
PROC: B41F1ZZ Fluoroscopy of Right Lower Extremity Arteries using Low Osmolar Contrast (ICD-10-PCS; 2018-09-06)
PROC: B44LZZZ Ultrasonography of Femoral Artery (ICD-10-PCS; 2018-09-06)
DX: I83.029 Varicose veins of left lower extremity with ulcer of unspecified site (principal); D68.59 Other primary thrombophilia; L97.828 Non-pressure chronic ulcer of other part of left lower leg with other specified severity; I70.248 Atherosclerosis of native arteries of left leg with ulceration of other part of lower leg; I50.9 Heart failure, unspecified; I11.0 Hypertensive heart disease with heart failure; I89.0 Lymphedema, not elsewhere classified; E87.6 Hypokalemia; T45.515A Adverse effect of anticoagulants, initial encounter; I48.0 Paroxysmal atrial fibrillation; Z79.899 Other long term (current) drug therapy; Z82.49 Family history of ischemic heart disease and other diseases of the circulatory system; Z79.01 Long term (current) use of anticoagulants; Y92.89 Other specified places as the place of occurrence of the external cause
CPT/HCPCS: 36415; 37225; 75716; 76937; 80048; 80053; 82962; 85007; 85025; 85610; 85730; 87040; 93925; 96372; 99291; G0378; A9270-GY; C1714; C1760; C1769; C1884; C1887; C2623; J0690; J1644; J1650; J2250; J3010; J3370; J3430; J3480; J7040; J7070; Q9967

== ENCOUNTER 2018-10-30 12:50 | Emergency (ER) | payer MEDICARE ==
--- NOTE | 2018-10-30 13:03 | Emergency Department Report ---
Chief Complaint: Medical Clearance Stated Complaint: DR MILLER/HIGH NA LEVELS 153 Time Seen by Provider: 10/30/18 13:03 - HPI History of Present Illness: elevated sodium 153 on 10/27/18 at his PCP office + dark urine no dysuria, no blood in the urine no muscle aches pt is on lasix 40 mg BID pt is on coumadin PMHx PVD, glaucoma, HLD non smoker non drinker MSE screening note: Focused history and physical exam performed. Due to findings the following was ordered: CMP, UA, PT/INR ED Disposition for MSE Condition: Stable
[2018-10-30 13:06] VITALS: BP 129/90
[2018-10-30 13:37] LABS: INR 1.52 (0.87-1.13)
[2018-10-30 13:38] LABS: Partial Thromboplastin Time 44.5 Sec. (24.2-36.6)
[2018-10-30 13:50] LABS: Alanine Aminotransferase 7 units/L (7-56); Albumin 3.6 g/dL (3.9-5); BUN/Creatinine Ratio 21; Blood Urea Nitrogen 17 mg/dL (9-20); Calcium 11.2 mg/dL (8.4-10.2); Hemolysis Index 7
--- NOTE | 2018-10-30 14:26 | Emergency Department Report ---
ED Recheck HPI - General Chief Complaint: Medical Clearance Stated Complaint: DR MILLER/HIGH NA LEVELS 153 Time Seen by Provider: 10/30/18 13:03 Source: patient Mode of arrival: Ambulatory Limitations: No Limitations - History of Present Illness Initial Comments: Patient is a 78-year-old male that presents emergency room for a cereal chemist recheck for a high sodium. Patient states he had a sodium last week with his primary care and his primary care instructions increase water. Patient states he is going out of town and wants his sodium rechecked. Patient's sodium was 153 on last . Patient states he had his labs drawn last and his primary care's office. Patient denies weakness. Patient denies physical complaint. Patient denies pain. Patient states he feels fine and just wants to make sure sodium is back to normal before he leaves town. Complaint: abnormal lab -: Sudden Returns Today for: CBOAL Symptoms Since Prior Visit: no new symptoms Context: called for abnorm lab res Associated Symptoms: none. denies: fever, chills, chest pain, shortness of breath, rash, malaise, nasuea, abdominal pain Treatments Prior to Arrival: other (increase water intake) - Related Data Home Medications Medication Instructions Recorded Confirmed Last Taken Furosemide [Lasix TAB] 40 mg PO QDAY 07/20/14 09/09/18 10/30/18 Irbesartan [Avapro] 150 mg PO QDAY 07/20/14 09/09/18 10/29/18 Potassium Chloride 10 meq PO QDAY 07/20/14 10/30/18 10/29/18 Pravastatin [Pravachol] 40 mg PO QHS 07/20/14 10/30/18 10/29/18 Timolol [Betimol] 1 drop OU BID 07/20/14 10/30/18 10/29/18 Warfarin Sodium [Coumadin] 4 mg PO QDAY 07/20/14 10/30/18 10/29/18 Carvedilol [Coreg] 12.5 mg PO BID 08/31/18 09/09/18 10/29/18 Latanoprost [Xalatan] 1 drop OU QPM 08/31/18 09/09/18 10/29/18 Preservision Areds 2 Softgel 2 cap PO DAILY 09/10/18 10/30/18 09/09/18 08:00 2 caps Previous Rx's Medication Instructions Recorded Last Taken Type oxyCODONE /ACETAMINOPHEN [Percocet 1 tab PO Q4H PRN #20 tablet 09/08/18 Unknown Rx 5/325 mg] Allergies Allergy/AdvReac Type Severity Reaction Status Date / Time No Known Allergies Allergy Verified 09/09/18 13:42 ED Review of Systems ROS: Stated complaint: DR REQUEST/HIGH NA LEVELS 153 Other details as noted in HPI Constitutional: denies: chills, fever Eyes: denies: eye pain, eye discharge, vision change ENT: denies: ear pain, throat pain Respiratory: denies: cough, shortness of breath, wheezing Cardiovascular: denies: chest pain, palpitations Endocrine: no symptoms reported Gastrointestinal: denies: abdominal pain, nausea, diarrhea Genitourinary: denies: urgency, dysuria Musculoskeletal: denies: back pain, joint swelling, arthralgia Skin: denies: rash, lesions Neurological: denies: headache, weakness, paresthesias Psychiatric: denies: anxiety, depression Hematological/Lymphatic: denies: easy bleeding, easy bruising ED Past Medical Hx - Past Medical History Previous Medical History?: Yes Hx Hypertension: Yes Hx Heart Attack/AMI: No Hx Congestive Heart Failure: Yes Hx Diabetes: No Hx HIV: No - Surgical History Past Surgical History?: No - Family History Family history: no significant - Social History Smoking Status: Never Smoker Substance Use Type: Prescribed - Medications Home Medications: Home Medications Medication Instructions Recorded Confirmed Last Taken Type Furosemide [Lasix TAB] 40 mg PO QDAY 07/20/14 09/09/18 10/30/18 History Irbesartan [Avapro] 150 mg PO QDAY 07/20/14 09/09/18 10/29/18 History Potassium Chloride 10 meq PO QDAY 07/20/14 10/30/18 10/29/18 History Pravastatin [Pravachol] 40 mg PO QHS 07/20/14 10/30/18 10/29/18 History Timolol [Betimol] 1 drop OU BID 07/20/14 10/30/18 10/29/18 History Warfarin Sodium [Coumadin] 4 mg PO QDAY 07/20/14 10/30/18 10/29/18 History Carvedilol [Coreg] 12.5 mg PO BID 08/31/18 09/09/18 10/29/18 History Latanoprost [Xalatan] 1 drop OU QPM 08/31/18 09/09/18 10/29/18 History oxyCODONE /ACETAMINOPHEN [Percocet 1 tab PO Q4H PRN #20 tablet 09/08/18 10/30/18 Unknown Rx 5/325 mg] Preservision Areds 2 Softgel 2 cap PO DAILY 09/10/18 10/30/18 09/09/18 08:00 History 2 caps ED Physical Exam - General Limitations: No Limitations General appearance: alert, in no apparent distress - Head Head exam: Present: atraumatic, normocephalic - Eye Eye exam: Present: normal appearance - ENT ENT exam: Present: mucous membranes moist - Neck Neck exam: Present: normal inspection - Respiratory Respiratory exam: Present: normal lung sounds bilaterally. Absent: respiratory distress - Cardiovascular Cardiovascular Exam: Present: regular rate, normal rhythm. Absent: systolic murmur, diastolic murmur, rubs, gallop - GI/Abdominal GI/Abdominal exam: Present: soft, normal bowel sounds - Rectal Rectal exam: Present: deferred - Extremities Exam Extremities exam: Present: normal inspection - Back Exam Back exam: Present: normal inspection - Neurological Exam Neurological exam: Present: alert, oriented X3 - Psychiatric Psychiatric exam: Present: normal affect, normal mood - Skin Skin exam: Present: warm, dry, intact, normal color. Absent: rash ED Course Vital Signs 10/30/18 13:03 Temperature 98.1 F Pulse Rate 66 Respiratory 18 Rate Blood Pressure 129/90 O2 Sat by Pulse 98 Oximetry - Reevaluation(s) Reevaluation #1: Patient's labs have a recheck. Patient's sodium was normal. Patient will be discharged home. Patient given discharge instructions. Patient stable for discharge. Patient voiced understanding of discharge instructions. Patient will need to follow up with primary care for further evaluation treatment. 10/30/18 14:24 ED Recheck MDM - Core Measures AMI Core Measures Followed: Yes - Differential Diagnosis Recheck of Abnormal Lab - Medical Decision Making Patient is a 78-year-old male presents emergency room for a chemistry check for high sodium. Sodium was rechecked and the urine is within normal limits. Patient will be discharged home. Patient's labs are normal. Patient's INR is 1.5. Patient will need to follow-up with his primary care for further management of his Coumadin. Patient given discharge instructions. Critical care attestation.: If time is entered above; I have spent that time in minutes in the direct care of this critically ill patient, excluding procedure time. ED Disposition Clinical Impression: Hypernatremia, On Coumadin for atrial fibrillation Disposition: - TO HOME OR SELFCARE Is pt being admited?: No Does the pt Need Aspirin: No Condition: Stable Instructions: Dehydration (ED) Additional Instructions: Patient follow up with primary care in 2-3 days. Patient to return to ER if condition worsens. Patient to rest. Patient to take meds as directed. Continue all home medications. Patient to increase water. Time of Disposition: 14:26
== END 2018-10-30 14:40 | disposition home or self-care (01) ==
LOC: ED 12:50
DX: E87.0 Hyperosmolality and hypernatremia (principal); I48.91 Unspecified atrial fibrillation; Z79.01 Long term (current) use of anticoagulants; I11.0 Hypertensive heart disease with heart failure; I50.9 Heart failure, unspecified
CPT/HCPCS: 36415; 80053; 85610; 85730; 99283

== ENCOUNTER 2018-11-17 15:03 | Outpatient (CLI) | payer MEDICARE ==
--- NOTE | 2018-11-17 17:05 | XRay Report ---
PROCEDURE: XR CHEST ROUTINE 2V TECHNIQUE: PA and lateral chest radiographs were obtained. HISTORY: COUGH COMPARISONS: None. FINDINGS: Heart: Normal. Mediastinum/Vessels: The aorta is tortuous. Cardiac silhouette is borderline enlarged.. Lungs/Pleural space: Normal. Bony thorax: No acute osseous abnormality. IMPRESSION: Aortic tortuosity. Borderline cardiomegaly This document is electronically signed by Rian Carreno MD., Nov 17 2018 05:03:36 PM ET
== END 2018-11-17 15:04 | disposition home or self-care (01) ==
LOC: XRAY 15:03
PROVIDERS: ATTEND Internal Medicine
DX: I77.1 Stricture of artery (principal); I10 Essential (primary) hypertension; E78.00 Pure hypercholesterolemia, unspecified; Z90.89 Acquired absence of other organs
CPT/HCPCS: 71046

== ENCOUNTER 2021-11-03 17:20 | Emergency (ER) | payer MEDICARE ==
[2021-11-03 18:14] VITALS: BP 132/56
[2021-11-03 18:57] LABS: BUN/Creatinine Ratio 21; Blood Urea Nitrogen 23 mg/dL (9-20); Calcium 9.7 mg/dL (8.4-10.2); Hemolysis Index 5
[2021-11-03 19:00] LABS: Basophils % (Auto) 0.4 % (0.0-1.8); Eosinophils % (Auto) 0.5 % (0.0-4.3); Hematocrit 33.7 % (35.5-45.6); Hemoglobin 10.7 gm/dl (11.8-15.2); Lymphocytes # (Auto) 0.8 K/mm3 (1.2-5.4); Lymphocytes % (Auto) 13.5 % (13.4-35.0); Mean Corpuscular HGB Conc 32 % (32-34); Mean Corpuscular Volume 87 fl (84-94); Monocytes # (Auto) 0.7 K/mm3 (0.0-0.8); Monocytes % (Auto) 11.7 % (0.0-7.3); Platelet Count 127 K/mm3 (140-440); Red Blood Count 3.89 M/mm3 (3.65-5.03); Red Cell Distribution Width 17.2 % (13.2-15.2)
== END 2021-11-03 23:05 | disposition left against medical advice (07) ==
LOC: ED 17:20
DX: S81.802A Unspecified open wound, left lower leg, initial encounter (principal); S81.801A Unspecified open wound, right lower leg, initial encounter; Z53.21 Procedure and treatment not carried out due to patient leaving prior to being seen by health care provider; X58.XXXA Exposure to other specified factors, initial encounter; Y93.89 Activity, other specified; Y92.89 Other specified places as the place of occurrence of the external cause; Y99.8 Other external cause status
CPT/HCPCS: 36415; 80048; 85025